=== PATIENT | female | born 1960 | race Caucasian/White ===

== ENCOUNTER 2020-09-06 10:15 | Inpatient (IN) | payer SELFPAY ==
[~2020-09-06] VITALS: Ht 160 cm; Wt 61.2 kg
[2020-09-06] MEDS ORDERED: HYDR12.55 PO (10:24)
[2020-09-06] MEDS ORDERED: ATEN50TA2 PO (10:24)
[2020-09-06 11:43] LABS: BASO % 0.1 % (0.0-1.0); HEMATOCRIT 33.7 % (36.0-47.0); LYMPH # 3.2 10^3/uL (1.5-5.0); LYMPH % 18.8 % (24.0-44.0); MEAN CORPUSCULAR HEMOGLOBIN 26.8 pg (27.0-33.0); MEAN CORPUSCULAR HGB CONC 32.6 g/dl (32.0-36.5); MEAN CORPUSCULAR VOLUME 82.2 fl (80.0-96.0); MONO # 1.6 10^3/uL (0.0-0.8); MONO % 9.4 % (2.0-8.0); NEUTROPHILS # 12.2 10^3/uL (1.5-8.5); NEUTROPHILS % 71.2 % (36.0-66.0); PLATELET COUNT, AUTOMATED 492 10^3/uL (150-450)
[2020-09-06 12:00] LABS: WHITE BLOOD COUNT 17.1 10^3/uL (4.0-10.0)
[2020-09-06 12:07] LABS: ALT/SGPT 14 U/L (12-78); BILIRUBIN,DIRECT 0.1 MG/DL (0.0-0.2); BILIRUBIN,TOTAL 0.3 MG/DL (0.2-1.0); BLOOD UREA NITROGEN 9 MG/DL (7-18); CALCIUM LEVEL 9.4 MG/DL (8.8-10.2); CARBON DIOXIDE LEVEL 27 MEQ/L (21-32); CHLORIDE LEVEL 100 MEQ/L (98-107); CREATININE FOR GFR 0.93 MG/DL (0.55-1.30); GLOMERULAR FILTRATION RATE > 60.0 (>45); GLUCOSE, FASTING 93 MG/DL (70-100); LIPASE 79 U/L (73-393); POTASSIUM SERUM 4.2 MEQ/L (3.5-5.1); SODIUM LEVEL 134 MEQ/L (136-145); TOTAL PROTEIN 7.3 GM/DL (6.4-8.2)
--- NOTE | 2020-09-06 13:02 | REP ---
INDICATION: biliary colic. COMPARISON: None. TECHNIQUE: Right upper quadrant sonography. FINDINGS: Scanning through the right upper quadrant of the abdomen demonstrates numerous stones producing acoustic shadowing in the dependent portion the gallbladder. Common bile duct is normal measuring 0.4 cm in greatest diameter. The gallbladder wall is not visibly thickened. No pericholecystic fluid is seen. Liver is homogeneous and normal in size. No pancreatic abnormality is observed. There is no evidence of ascites. Right kidney shows a extrarenal pelvis configuration. No hydronephrosis. Right renal dimensions are 11.1 x 5.1 x 4.7 cm.. IMPRESSION: Cholelithiasis without evidence of biliary ductal dilation. No gallbladder wall thickening or pericholecystic fluid.. <Electronically signed by Michel Pierre > 09/06/20 [id number]
[2020-09-06] MEDS ORDERED: ISOVUE-370 76% 100ML VIAL As Ordered ONE (13:36)
[2020-09-06] MEDS: GASTROGRAFIN SOLUTION 30ML PO SCH ×2 (15:00→15:30)
--- NOTE | 2020-09-06 16:59 | REP ---
INDICATION: LLQ pain, leukocytosis. COMPARISON: None. TECHNIQUE: 100 mL of intravenous Isovue 370 is administered and helical scanning is acquired. 3 mm axial images are generated. Coronal and sagittal MPR images are provided. FINDINGS: Preliminary digital fulfillment associate radiograph shows an unremarkable bowel gas pattern. The lung bases are essentially clear on axial CT images. There are several scattered subcentimeter low-density areas in the liver consistent with small cysts. There is a regional area of increased density on postcontrast images. This may be fat sparing or a small hemangioma. Fat sparing is favored since no abnormality was noted on right upper quadrant sonography. Normal adrenal glands are seen. No abnormality is noted in the pancreas. There is heterogeneous density in the gallbladder lumen consistent with cholelithiasis. No pericholecystic fluid is seen. The spleen is unremarkable. There is no evidence of upper abdominal ascites. There is moderate mural thickening in the distal ileum over a long segment consistent with inflammatory bowel disease, Crohn's. There is a right lower quadrant abscess anterior to the psoas muscle and just posterior to the distal ileum. This abscess contains air and some fluid. Its dimensions are 3.9 by 4.8 by 6.0 cm. There is surrounding edema and inflammation. There are reactive regional mildly enlarged lymph nodes. 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 A smaller abscess cavity is seen in this location, 2.2 x 2.5 cm. Urinary bladder is intact. No uterine or ovarian abnormality is seen. There is no evidence of free intraperitoneal air. I note that the appendix is surgically absent by history. It is not separately identified. IMPRESSION: Findings most consistent with inflammatory bowel disease, Crohn's enteropathy with extensive small bowel involvement, reactive adenopathy, fistula formation, and 2 lower abdominal abscesses. The largest of these measures 6 cm in greatest diameter. There are several loops of inflamed distal ileum. <Electronically signed by Michel Pierre > 09/06/20 [id number]
[2020-09-06] MEDS ORDERED: NS 1,000 ML IV SCH (17:20)
[2020-09-06] MEDS ORDERED: CIPROFLOXACIN 400 MG in IV 1 EA IV ONE (17:25)
[2020-09-06] MEDS ORDERED: metroNIDAZOLE 500 MG in IV 1 EA IV ONE (17:25)
[2020-09-06] MEDS ORDERED: HYDR12CA PO (17:43)
--- NOTE | 2020-09-06 18:50 | REP ---
INDICATION: admission. COMPARISON: None. TECHNIQUE: Portable upright AP radiograph. FINDINGS: There is left mediastinal lymphadenopathy. Heart is not enlarged. Lung tamez are clear. Pleural angles are sharp. No bony destructive lesion is seen. IMPRESSION: Mediastinal lymphadenopathy suggestive of malignancy. In combination with the intra-abdominal findings, lymphoma and metastatic carcinoma or carcinoid of the small intestine are in the differential as well. <Electronically signed by Michel Pierre > 09/06/20 2158
[2020-09-06 19:00] LABS: RSV AMPLIFICATION NEGATIVE (NEGATIVE)
[2020-09-06] MEDS ORDERED: ACETAMINOPHEN TAB 650MG DOSE (2X325MG) PO PRN (19:00)
--- NOTE | 2020-09-06 19:59 | HPEPDOC ---
General Date of Admission Sep 06, 2020 Date of Service: Sep 06, 2020 Chief Complaint The patient is a 60-year-old female admitted with a reason for visit of abdominal pain and poor oral intake Source: Patient History of Present Illness Mrs. Hyman is a 60 year old female with hypertension who presents with worsening abdominal pain, diarrhea, and poor oral intake. Her symptoms initially started around last July. She had abdominal pain, diarrhea, and poor oral intake in termittently. Since then she's lost 40 pounds. Initially, her providers thought this was pain from the gallbladder. She does have cholelithiasis. She's been in and out of [facility] for suspected biliary colic. Last Monday, she had another episode of abdominal pain. Pain is located in the right upper and right lower abdomen. Severe pain lasted for about 6-7 hours and then becomes an intermittent abdominal discomfort. BMs does not affect pain. Pain was better with Advil. Otherwise, she had nausea and vomiting when the pain first started. No hematemesis. She also has had loose bowel movements since then. About 2-4 a day. 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 Her appetite has been poor sensation. She has also had chills and night sweats. At home she has low-grade temperatures over 100.1. She came into the ED for further evaluation. Workup was significant for a leukocytosis of 17.1. CT of abdomen and pelvis demonstrated inflammatory bowel disease (consistent with Crohn's disease) with reactive adenopathy, fistula formation, and 2 abscesses. When abscess measures 3.9 x 4.8 x 6 cm. The other abscess measures 2.2 x 2.5 cm. I discussed the case with both GI, Dr. Machado and general surgery, Dr. Sarabia. GI recommends IR drainage of abscess and IV antibiotics. We can also start Solu- Medrol for the Crohn's disease. General surgery recommends first treating the abscess, then have GI evaluate to determine if the fistula would require surgery. 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 Hypertension 2. Cholelithiasis Surgical History 1. Appendectomy Family History Father: History of colon cancer and high blood pressure Mother: History of congestive heart failure Social History * Smoker: Denies Alcohol: Denies Drugs: denies A-FIB/CHADSVASC A-FIB History Current/History of A-Fib/PAF?: No Review of Systems Constitutional: Reports: Chills, Fever (low-grade temp, highest 100.1) Eyes: Denies: Pain, Vision change ENT: Denies: Sore Throat Skin: Denies: Rash Pulmonary: Denies: Dyspnea, Cough Cardiovascular: Denies: Chest Pain, Lt Headedness Gastrointestinal: Reports: Abdominal Pain (right upper and right lower quadrant), Diarrhea (loose, not watery) Genitourinary: Denies: Dysuria Hematologic: Denies: Bruising Neurological: Denies: Numbness Psych: Denies: Anxiety, Depression Physical Examination General Exam: Positive: Alert, Cooperative Eye Exam: Positive: EOMI; Negative: Sclera icteric ENT Exam: Positive: Atraumatic Neck Exam: Positive: Supple Chest Exam: Positive: Clear to auscultation Heart Exam: Positive: Rate Normal, Regular Rhythm Abdomen Exam: Positive: Normal bowel sounds, Soft, Tenderness (right upper and right lower quadrant) Extremity Exam: Negative: Edema Neuro Exam: Positive: Normal Speech, Strength at 5/5 X4 ext, Cranial Nerves 3- 12 NL Psych Exam: Positive: Mental status NL, Mood NL Vital Signs Vital Signs Date Time Temp Pulse Resp B/P (MAP) Pulse Ox O2 Delivery O2 Flow Rate FiO2 09/06/20 18:32 98.1 76 18 129/82 (98) 98 Room Air Laboratory Data Labs 24H Laboratory Tests 2 09/06/20 11:34: Immature Granulocyte % (Auto) 0.5, Neutrophils (%) (Auto) 71.2H, Lymphocytes (%) (Auto) 18.8L, Monocytes (%) (Auto) 9.4H, Eosinophils (%) (Auto) 0.0, Basophils (%) (Auto) 0.1, Neutrophils # (Auto) 12.2H, Lymphocytes # (Auto) 3.2, Monocytes # (Auto) 1.6H, Eosinophils # (Auto) 0.0, Basophils # (Auto) 0.0, Nucleated Red Blood Cells % (auto) 0.0, Anion Gap 7L, Glomerular Filtration Rate > 60.0, Calcium Level 9.4, Total Bilirubin 0.3, Direct Bilirubin 0.1, Aspartate Amino Transf (AST/SGOT) 15, Alanine Aminotransferase (ALT/SGPT) 14, Alkaline Phosphatase 120H, Total Protein 7.3, Albumin 3.0L, Albumin/Globulin Ratio 0.7L, Lipase 79 09/06/20 17:55: Coronavirus (COVID-19)(PCR) NEGATIVE, Influenza Type A (RT-PCR) NEGATIVE, Influenza Type B (RT-PCR) NEGATIVE, Respiratory Syncytial Virus (PCR) NEGATIVE 09/06/20 18:08: POC Lactate (Misc Panel) 0.44 CBC/BMP Laboratory Tests 09/06/20 11:34 Assessment/Plan Mrs. Hyman is a 60 year old female with hypertension who presents with worsening abdominal pain, diarrhea, and poor oral intake and found to have Crohn's flare complicated with 2 abscesses and enteroenteric fistula. We will request IR to drain both of these abscesses and attempt to culture. We'll empirically start patient on ciprofloxacin and metronidazole. After IR drainage, we'll start patient on Solu-Medrol for the Crohn's flare. Patient will need a follow-up with GI to discuss a biologic once infection resolves. Would also need to discuss [facility] GI about enteroenteric fistula and if Gen. surgery would need to be involved. Otherwise, after admission, chest x-ray was obtained. Chest x-ray demonstrates mediastinal lymphadenopathy. This may mean malignancy but would need biopsy to confirm. Plan / VTE VTE Prophylaxis Ordered?: Yes Plan Plan 1. Crohn's flare complicated by 2 abscesses and enteroenteric fistula Demonstrated on CT of abdomen and pelvis with contrast We'll request IR to drain abscess and send aspirate for aerobic and anaerobic culture Empirically on ciprofloxacin and metronidazole We'll start Solu-Medrol 40 mg IV once daily after drainage Patient will need a follow-up with GI to discuss management of Crohn's and possibly starting a biologic after infection resolves. Patient will need a follow-up with GI to discuss if enteroenteric fistula would need surgery Patient will be made NPO and given IV fluids for possible CT-guided abscess drainage tomorrow Clear liquid diet until abdominal pain improves 2. Hypertension Patient does not meet SIRS criteria Blood pressure is currently acceptable We'll hold atenolol and hydrochlorothiazide until after drainage 3. Mediastinal lymphadenopathy Possible malignancy Would need biopsy as well Results returned later in the evening. Will discuss results with patient tomorrow morning 4. DVT prophylaxis In anticipation for CT-guided abscess drainage, no chemical prophylaxis SCDs and teds Disposition: Pending clinical improvement and results from abscess drainage DIANELYS IVY DO Sep 06, 2020 19:59
[2020-09-06 20:50] VITALS: BP 135/75
[2020-09-06] MEDS: NS 1,000 ML IV SCH (21:04)
[2020-09-07] MEDS: metroNIDAZOLE 500 MG in IV 1 EA IV SCH ×3 (02:13→17:28)
[2020-09-07 05:14] VITALS: BP 121/70
[2020-09-07] MEDS: CIPROFLOXACIN 400 MG in IV 1 EA IV SCH ×2 (05:40→18:29)
[2020-09-07 06:56] LABS: HEMATOCRIT 31.7 % (36.0-47.0); HEMOGLOBIN 10.1 g/dl (12.0-15.5); MEAN CORPUSCULAR HEMOGLOBIN 26.4 pg (27.0-33.0); MEAN CORPUSCULAR HGB CONC 31.9 g/dl (32.0-36.5); MEAN CORPUSCULAR VOLUME 82.8 fl (80.0-96.0); PLATELET COUNT, AUTOMATED 422 10^3/uL (150-450); RED BLOOD COUNT 3.83 10^6/uL (4.00-5.40); WHITE BLOOD COUNT 13.7 10^3/uL (4.0-10.0)
[2020-09-07 07:07] LABS: INR 1.13; PROTHROMBIN TIME 14.8 SECONDS (12.5-14.3)
[2020-09-07 07:08] LABS: PARTIAL THROMBOPLASTIN TIME 37.3 SECONDS (24.2-38.5)
[2020-09-07 07:17] LABS: BLOOD UREA NITROGEN 6 MG/DL (7-18); CALCIUM LEVEL 8.5 MG/DL (8.8-10.2); CARBON DIOXIDE LEVEL 29 MEQ/L (21-32); CHLORIDE LEVEL 101 MEQ/L (98-107); CREATININE FOR GFR 0.71 MG/DL (0.55-1.30); GLOMERULAR FILTRATION RATE > 60.0 (>45); GLUCOSE, FASTING 135 MG/DL (70-100); POTASSIUM SERUM 3.6 MEQ/L (3.5-5.1); SODIUM LEVEL 136 MEQ/L (136-145)
[2020-09-07] MEDS: NS 1,000 ML IV SCH (11:40)
--- NOTE | 2020-09-07 12:47 | IPNPDOC ---
Subjective Date Seen The patient was seen on 09/07/20. Subjective Chief Complaint/HPI Mrs. Hyman is a 60 year old female with hypertension who presents with worsening abdominal pain, diarrhea, and poor oral intake. This morning, she is still having diarrhea and abdominal pain. Denies chest pain or dyspnea. Pending CT guiding abscess drainage. Objective Physical Examination General Exam: Positive: Alert, Cooperative Eye Exam: Positive: EOMI; Negative: Sclera icteric ENT Exam: Positive: Atraumatic Neck Exam: Positive: Supple Chest Exam: Positive: Clear to auscultation Heart Exam: Positive: Rate Normal, Regular Rhythm Abdomen Exam: Positive: Normal bowel sounds, Soft, Tenderness (right upper and right lower quadrant) Extremity Exam: Negative: Edema Neuro Exam: Positive: Normal Speech, Strength at 5/5 X4 ext, Cranial Nerves 3- 12 NL Psych Exam: Positive: Mental status NL, Mood NL Assessment /Plan Assessment Mrs. Hyman is a 60 year old female with hypertension who presents with worsening abdominal pain, diarrhea, and poor oral intake and found to have Crohn's flare complicated with 2 abscesses and enteroenteric fistula. We will request IR to drain both of these abscesses and attempt to culture. We'll empirically start patient on ciprofloxacin and metronidazole. After IR drainage, we'll start patient on Solu-Medrol for the Crohn's flare. Patient will need a follow-up with GI to discuss a biologic once infection resolves. Would also need to discuss with GI about enteroenteric fistula and if Gen. surgery would need to be involved. Otherwise, after admission, chest x-ray was obtained. Chest x-ray demonstrates mediastinal lymphadenopathy. This may mean malignancy but would need biopsy to confirm. Discussed CXR findings with patient. Will order CT chest with contrast to evaluate location of mediastinal lymphadenopathy. Since patient had contrast study (CT abd/pelvis with IV contrast) yesterday, this study will have to be scheduled for tomorrow. Plan/VTE VTE Prophylaxis Ordered?: Yes Plan 1. Crohn's flare complicated by 2 abscesses and enteroenteric fistula Demonstrated on CT of abdomen and pelvis with contrast We'll request IR to drain abscess and send aspirate for aerobic and anaerobic culture Empirically on ciprofloxacin and metronidazole We'll start Solu-Medrol 40 mg IV once daily after drainage Patient will need a follow-up with GI to discuss management of Crohn's and possibly starting a biologic after infection resolves. Patient will need a follow-up with GI to discuss if enteroenteric fistula would need surgery Patient will be made NPO and given IV fluids for CT-guided abscess drainage today. Pending drainage Clear liquid diet until abdominal pain improves 2. Hypertension Patient does not meet SIRS criteria Blood pressure is currently acceptable We'll hold atenolol and hydrochlorothiazide until after drainage 3. Mediastinal lymphadenopathy Possible malignancy Will order CT chest with IV contrast to evaluate mediastinal lymphadenopathy. Will have to be done tomorrow as patient had contrast study within [address] chest with IV contrast is obtained, will need to touch base with pulmonology to discuss biopsy during his admission or outpatient 4. DVT prophylaxis In anticipation for CT-guided abscess drainage, no chemical prophylaxis SCDs and teds Disposition: Pending abscess drainage today and CT chest with IV contrast tomorrow. Pending clinical improvement VS, I&O, 24H, Fishbone Vital Signs/I&O Vital Signs Date Time Temp Pulse Resp B/P (MAP) Pulse Ox O2 Delivery O2 Flow Rate FiO2 09/07/20 05:14 98.3 81 18 121/70 (87) 97 Room Air I&O- Last 24 Hours up to 6 AM 09/07/20 05:59 Intake Total 750 ml Balance 750 ml Laboratory Data 24H LABS Laboratory Tests 2 09/06/20 17:55: Coronavirus (COVID-19)(PCR) NEGATIVE, Influenza Type A (RT-PCR) NEGATIVE, Influ kristyn Type B (RT-PCR) NEGATIVE, Respiratory Syncytial Virus (PCR) NEGATIVE 09/06/20 18:08: POC Lactate (Misc Panel) 0.44 09/07/20 06:41: Nucleated Red Blood Cells % (auto) 0.0, Prothrombin Time 14.8H, Prothromb Time International Ratio 1.13, Activated Partial Thromboplast Time 37.3, Anion Gap 6L, Glomerular Filtration Rate > 60.0, Calcium Level 8.5L CBC/BMP Laboratory Tests 09/07/20 06:41 DIANELYS IVY DO Sep 07, 2020 12:47
[2020-09-07] MEDS ORDERED: SODIUM BICARBONATE 8.4% INJ 50MEQ 50 ML VIAL As Ordered ONE (15:44)
[2020-09-07] MEDS ORDERED: LIDOCAINE 1% MDV 20ML VIAL As Ordered ONE (15:44)
[2020-09-07] MEDS ORDERED: SODIUM CHLORIDE 0.9% INJ 10 ML SYR IV SCH (18:00)
--- NOTE | 2020-09-07 18:14 | REP ---
INDICATION: two abdominal abscess seen on CT abd/pelvis. COMPARISON: None. TECHNIQUE: The procedure is performed by EULOGIO Vang, under the direct supervision of Dr. Pierre. The risks and benefits of the procedure were explained to the patient and informed consent was obtained both orally and written. Directly prior to the start of the procedure, a formal timeout was done in the exam room. The anterior pelvic abscess was localized using CT guidance. Skin was prepped and draped in the usual sterile fashion. Twelve ml of buffered lidocaine was used as a local anesthetic. FINDINGS: Using CT guidance a 10 [place] multi side hole pigtail catheter was inserted and advanced into the abscess. Approximately 40 mL of pus was aspirated and sent to the lab for further analysis. The 10 [place] pigtail catheter was sutured in place, a sterile dressing was applied, and a drainage bag was attached. CT images obtained directly after the placement show the pigtail catheter to be in good position. IMPRESSION: Ten [place] pigtail catheter placement into pelvic abscess. <Electronically signed by Tarsha Trevino > 09/07/20 1738 <Electronically signed by Michel Pierre > 09/07/20 1814
--- NOTE | 2020-09-07 19:52 | ECGEPIP ---
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
[2020-09-07] MEDS: ONDANSETRON 4MG/2ML VIAL IV PRN (20:06)
[2020-09-07 22:00] VITALS: BP 144/84
[2020-09-08] MEDS ORDERED: ACETAMINOPHEN TAB 650MG DOSE (2X325MG) PO PRN (00:50)
[2020-09-08] MEDS: metroNIDAZOLE 500 MG in IV 1 EA IV SCH ×3 (01:05→18:47)
[2020-09-08 06:00] VITALS: BP 114/58
[2020-09-08] MEDS: NS 1,000 ML IV SCH ×2 (06:06→21:22)
[2020-09-08] MEDS: CIPROFLOXACIN 400 MG in IV 1 EA IV SCH ×2 (06:06→17:14)
[2020-09-08] MEDS: ONDANSETRON 4MG/2ML VIAL IV PRN (06:55)
[2020-09-08 07:21] LABS: HEMATOCRIT 32.4 % (36.0-47.0); HEMOGLOBIN 10.6 g/dl (12.0-15.5); MEAN CORPUSCULAR HGB CONC 32.7 g/dl (32.0-36.5); MEAN CORPUSCULAR VOLUME 82.4 fl (80.0-96.0); PLATELET COUNT, AUTOMATED 431 10^3/uL (150-450); RED BLOOD COUNT 3.93 10^6/uL (4.00-5.40); WHITE BLOOD COUNT 20.8 10^3/uL (4.0-10.0)
[2020-09-08 07:43] LABS: BLOOD UREA NITROGEN 5 MG/DL (7-18); CALCIUM LEVEL 8.8 MG/DL (8.8-10.2); CARBON DIOXIDE LEVEL 25 MEQ/L (21-32); CHLORIDE LEVEL 96 MEQ/L (98-107); CREATININE FOR GFR 0.74 MG/DL (0.55-1.30); GLOMERULAR FILTRATION RATE > 60.0 (>45); GLUCOSE, FASTING 120 MG/DL (70-100); POTASSIUM SERUM 3.5 MEQ/L (3.5-5.1); SODIUM LEVEL 132 MEQ/L (136-145)
[2020-09-08] MEDS ORDERED: ISOVUE-370 76% 100ML VIAL As Ordered ONE (08:16)
[2020-09-08] MEDS ORDERED: methylPREDNISolone 40MG 1ML VIAL IV SCH (09:00)
--- NOTE | 2020-09-08 09:20 | REP ---
INDICATION: Mediastinal lymphadenopathy suggestive of malignancy. COMPARISON: Portable chest 09/06/2020 TECHNIQUE: Isovue 370 mg/mL 75 mL routine axial scans and both coronal and sagittal reconstructions. Coronal MIP reformats also reviewed. FINDINGS: There is an 8.9 8 by 4.6 cm lobulated solid mass in the superior anterior mediastinum it extends from the superior aspect of the left hilum abutting the aortic arch main pulmonary artery segment and extending to the anterior chest wall. There are few tiny nodes adjacent to it 5 mm or smaller. The mass has some coarse calcifications located anteriorly in only one area and some slight heterogeneity of densities. There is also a lobulated 2.9 x 1.8 x 1.7 cm superior mediastinal mass abutting the brachiocephalic vein and SVC inferiorly and medially respectively. There were no pathologic sized hilar nodes. There are other subcentimeter nodes in the AP window, subcarinal and right paratracheal region. I do not see pathologic sized axillary or supraclavicular nodes. Thyroid lobes symmetric. Tracheal airway intact. Heart is not enlarged. There is no pericardial thickening or effusion. The lung tamez are well inflated. There is no definite acute infiltrate or parenchymal mass. No pleural thickening or calcified pleural plaques. No definite effusion see no visible nodules. The bone windows show the sternum, manubrium, medial clavicles, left AC joint, scapula, humeral heads and visualized portions of glenohumeral joints intact. Some minor degenerative changes in the spine without compression deformity or destructive lesions. Visualized ribs intact. In the visible upper abdomen there are a few tiny hypodensities consistent with small hepatic cysts. That portion of liver, gallbladder, pancreas, spleen and upper poles of kidneys unchanged without hydronephrosis, mass or other acute finding. Adrenal glands symmetric and normal. Stomach with small hiatal hernia. IMPRESSION: 1. An 8.9 x 8 x 4.6 cm mediastinal mass in the anterior and superior mediastinum extending from the left hilum superiorly to abut the anterior chest wall, aortic arch and main pulmonary artery segment. It is lobulated, slightly heterogeneous density and has 1 area of coarse calcification within it. No adjacent lung findings. A 2nd anterior superior mediastinal mass 2.9 x 1.8 x 1.7 cm abuts the inferior aspect of the brachiocephalic vein in the medial aspect of the SVC. No other mediastinal masses or adenopathy of pathologic size. Differential diagnostic considerations for mediastinal masses extensive above lymphoma is certainly a strong consideration. Lung tamez clear. Bones intact. 2. Small hiatal hernia. A few tiny a Paddock cysts. No other significant finding. <Electronically signed by Seth Bush > 09/08/20 0993
[2020-09-08 14:00] VITALS: BP 107/61
--- NOTE | 2020-09-08 16:38 | IPNPDOC ---
Text Note Date of Service The patient was seen on 09/08/20. NOTE Subjective: No any acute events overnight, intestinal abscesses were drained yesterday. Objective: GENERAL APPEARANCE: NAD HEENT: no scleral icterus, no JVD, EOMI CARDIOVASCULAR: S1S2 LUNGS: Diminished lung sounds bilaterally ABDOMEN: soft & moderately tender on palpation around right lower quadrant, serosanguineous discharge on the drainage bag MUSCULOSKELETAL: no cyanosis, no swelling INTEGUMENT: no generalized pallor NEUROLOGICAL: cranial nerve function from 2-12 intact intact, follows commands, speech not dysarthric Assessment /Plan Patient is is a 60 year old female with hypertension who presents with worsening abdominal pain, diarrhea, and poor oral intake and found to have Crohn's flare complicated with 2 abscesses and enteroenteric fistula. Crohn exacerbation/intestinal abscesses/enteroenteric fistula Continue steroids. I talked to Dr. Machado, he recommended to change IV steroids to by mouth prednisone 40 mg Abdominal Pain significantly subsided GI team will proceed with colonoscopy in 2 days Continue clear liquid diet Drain culture positive for Streptococcus group C Continue ciprofloxacin IV and Flagyl IV Drain was done on 09/07/20 No surgical intervention for enteroenteric fistula for now Hypertension Continue home cardioprotective medications Blood pressure under control Mediastinal lymphadenopathy CT chest showed An 8.9 x 8 x 4.6 cm mediastinal mass in the anterior and superior mediastinum extending from the left hilum superiorly to abut the anterior chest wall, aortic arch and main pulmonary artery segment. It is lobulated, slightly heterogeneous density and has 1 area of coarse calcification within it. No adjacent lung findings. A 2nd anterior superior mediastinal mass 2.9 x 1.8 x 1.7 cm abuts the inferior aspect of the brachiocephalic vein in the medial aspect of the SVC. Differential diagnosis includes lymphoma versus lung malignancy IR biopsy ordered DVT prophylaxis Heparin 5000 twice a day VS,Fishbone, I+O VS, Fishbone, I+O Laboratory Tests 09/08/20 06:56 Vital Signs Date Time Temp Pulse Resp B/P (MAP) Pulse Ox O2 Delivery O2 Flow Rate FiO2 09/08/20 14:00 98.3 87 16 107/61 (76) 98 09/08/20 06:00 Room Air I&O- Last 24 Hours up to 6 AM 09/08/20 06:00 Intake Total 700 ml Output Total 0 ml Balance 700 ml WANDA MARTINEZ DO Sep 08, 2020 16:38
[2020-09-08 22:00] VITALS: BP 139/73
[2020-09-09] MEDS: metroNIDAZOLE 500 MG in IV 1 EA IV SCH ×3 (02:52→18:13)
[2020-09-09] MEDS: CIPROFLOXACIN 400 MG in IV 1 EA IV SCH ×2 (05:19→18:13)
[2020-09-09 06:00] VITALS: BP 129/69
[2020-09-09] MEDS ORDERED: MOM 30ML SUSPENSION UDC PO ONE (08:00)
[2020-09-09] MEDS ORDERED: atenoloL 50 MG TAB PO SCH (09:00)
[2020-09-09] MEDS: predniSONE 20 MG TAB PO SCH (09:22)
[2020-09-09] MEDS: atenoloL 50 MG TAB PO SCH (09:33)
[2020-09-09 09:34] LABS: HEMATOCRIT 32.7 % (36.0-47.0); HEMOGLOBIN 10.3 g/dl (12.0-15.5); MEAN CORPUSCULAR HEMOGLOBIN 26.6 pg (27.0-33.0); MEAN CORPUSCULAR HGB CONC 31.5 g/dl (32.0-36.5); MEAN CORPUSCULAR VOLUME 84.5 fl (80.0-96.0); PLATELET COUNT, AUTOMATED 409 10^3/uL (150-450); RED BLOOD COUNT 3.87 10^6/uL (4.00-5.40); WHITE BLOOD COUNT 12.7 10^3/uL (4.0-10.0)
[2020-09-09 10:09] LABS: BLOOD UREA NITROGEN 6 MG/DL (7-18); CALCIUM LEVEL 8.5 MG/DL (8.8-10.2); CARBON DIOXIDE LEVEL 26 MEQ/L (21-32); CHLORIDE LEVEL 105 MEQ/L (98-107); GLOMERULAR FILTRATION RATE > 60.0 (>45); GLUCOSE, FASTING 167 MG/DL (70-100); POTASSIUM SERUM 3.1 MEQ/L (3.5-5.1); SODIUM LEVEL 139 MEQ/L (136-145)
[2020-09-09 14:00] VITALS: BP 115/73
[2020-09-09] MEDS ORDERED: LIDOCAINE 1% MDV 20ML VIAL As Ordered ONE (14:54)
[2020-09-09] MEDS: NS 1,000 ML IV SCH (14:59)
[2020-09-09] MEDS ORDERED: SODIUM BICARBONATE 8.4% INJ 50MEQ 50 ML VIAL As Ordered ONE (15:01)
[2020-09-09] MEDS ORDERED: POTASSIUM CHLORIDE 10 MEQ SR TABLET PO ONE (15:30)
--- NOTE | 2020-09-09 15:33 | IPNPDOC ---
Text Note Date of Service The patient was seen on 09/09/20. NOTE Subjective: No any acute events overnight. Patient denied fever, chills, nausea, chest pain or palpitations Objective: GENERAL APPEARANCE: NAD HEENT: no scleral icterus, no JVD, EOMI CARDIOVASCULAR: S1S2 LUNGS: Diminished lung sounds bilaterally ABDOMEN: soft & mildly tender on palpation around right lower quadrant, serous discharge in the drainage bag MUSCULOSKELETAL: no cyanosis, no swelling INTEGUMENT: no generalized pallor NEUROLOGICAL: cranial nerve function from 2-12 intact intact, follows commands, speech not dysarthric Assessment /Plan Patient is is a 60 year old female with hypertension who presents with worsening abdominal pain, diarrhea, and poor oral intake and found to have Crohn's flare complicated with 2 abscesses and enteroenteric fistula. Crohn exacerbation/intestinal abscesses/enteroenteric fistula Continue steroids. I talked to Dr. Machado, he recommended to change IV steroids to by mouth prednisone 40 mg Abdominal Pain significantly subsided GI team will proceed with colonoscopy tomorrow Drain culture positive for Streptococcus group C Continue ciprofloxacin IV and Flagyl IV No surgical intervention for enteroenteric fistula for now Drain was done on 09/07/20 Hypertension Continue home cardioprotective medications Blood pressure under control Mediastinal lymphadenopathy CT chest showed An 8.9 x 8 x 4.6 cm mediastinal mass in the anterior and superior mediastinum extending from the left hilum superiorly to abut the anterior chest wall, aortic arch and main pulmonary artery segment. It is lobulated, slightly heterogeneous density and has 1 area of coarse calcification within it. No adjacent lung findings. A 2nd anterior superior mediastinal mass 2.9 x 1.8 x 1.7 cm abuts the inferior aspect of the brachiocephalic vein in the medial aspect of the SVC. Differential diagnosis includes lymphoma versus lung malignancy IR biopsy ordered, will be done today DVT prophylaxis Heparin 5000 twice a day VS,Fishbone, I+O VS, Fishbone, I+O Laboratory Tests 09/09/20 09:19 09/09/20 09:20 Vital Signs Date Time Temp Pulse Resp B/P (MAP) Pulse Ox O2 Delivery O2 Flow Rate FiO2 09/09/20 15:19 65 18 96 Room Air 09/09/20 15:09 97.8 09/09/20 14:00 115/73 (87) I&O- Last 24 Hours up to 6 AM 09/09/20 06:00 Intake Total 3740 ml Output Total 110 ml Balance 3630 ml WANDA MARTINEZ DO Sep 09, 2020 15:33
[2020-09-09] MEDS ORDERED: POLYETHYLENE GLYCOL (MIRALAX) 238GM BOTTLE PO ONE (17:00)
--- NOTE | 2020-09-09 17:41 | REP ---
INDICATION: mediastinal mass. COMPARISON: None. TECHNIQUE: The procedure is performed by Tarsha Trevino [facility], under the direct supervision of Dr. Beyer. The risks and benefits of the procedure were explained to the patient and informed consent was obtained both orally and written. Directly prior to the start of the procedure, a formal timeout was done in the exam room. The left-sided mediastinal mass was localized using CT guidance. Skin was prepped and draped in the usual sterile fashion. Five ml of buffered lidocaine was used as a local anesthetic. FINDINGS: Using CT guidance a 19/20 gauge coaxial needle biopsy system was inserted and advanced into the nodule. Six core biopsy specimens were obtained. Three specimens were sent to our lab here, and remaining 3 were sent out in RPMI solution, for further testing. CT images obtained directly after the biopsy show no evidence of pneumothorax. After the appropriate amount of monitored convalescence the patient was discharged from the department. IMPRESSION: CT-guided mediastinal biopsy. <Electronically signed by Tarsha Trevino > 09/09/20 1606 <Electronically signed by Av Beyer > 09/09/20 [id number]
[2020-09-09 22:00] VITALS: BP 156/88
[2020-09-09] MEDS: HEPARIN SOD (PORCINE) 5000UNITS/ML 1ML VIAL/SYRINGE SQ SCH (22:29)
[2020-09-10] MEDS: metroNIDAZOLE 500 MG in IV 1 EA IV SCH ×3 (02:35→18:44)
[2020-09-10] MEDS ORDERED: POLYETHYLENE GLYCOL (MIRALAX) 238GM BOTTLE PO ONE (05:00)
[2020-09-10] MEDS: CIPROFLOXACIN 400 MG in IV 1 EA IV SCH ×2 (06:04→18:44)
[2020-09-10] MEDS: NS 1,000 ML IV SCH ×2 (06:08→18:44)
[2020-09-10 06:46] LABS: HEMATOCRIT 33.9 % (36.0-47.0); HEMOGLOBIN 10.4 g/dl (12.0-15.5); MEAN CORPUSCULAR HEMOGLOBIN 26.1 pg (27.0-33.0); MEAN CORPUSCULAR HGB CONC 30.7 g/dl (32.0-36.5); PLATELET COUNT, AUTOMATED 459 10^3/uL (150-450); RED BLOOD COUNT 3.99 10^6/uL (4.00-5.40); WHITE BLOOD COUNT 13.3 10^3/uL (4.0-10.0)
[2020-09-10 06:47] VITALS: BP 148/78
[2020-09-10 07:01] LABS: BLOOD UREA NITROGEN 6 MG/DL (7-18); CALCIUM LEVEL 8.6 MG/DL (8.8-10.2); CARBON DIOXIDE LEVEL 28 MEQ/L (21-32); CHLORIDE LEVEL 106 MEQ/L (98-107); CREATININE FOR GFR 0.69 MG/DL (0.55-1.30); GLOMERULAR FILTRATION RATE > 60.0 (>45); GLUCOSE, FASTING 89 MG/DL (70-100); POTASSIUM SERUM 3.3 MEQ/L (3.5-5.1); SODIUM LEVEL 139 MEQ/L (136-145)
[2020-09-10] MEDS: HEPARIN SOD (PORCINE) 5000UNITS/ML 1ML VIAL/SYRINGE SQ SCH ×2 (09:00→22:01)
[2020-09-10] MEDS ORDERED: KCL 10MEQ/100ML SWI (KRUN) 10 MEQ in IV 1 EA IV ONE (09:00)
[2020-09-10] MEDS: POTASSIUM CHLORIDE 10 MEQ SR TABLET PO SCH (09:11)
[2020-09-10] MEDS: atenoloL 50 MG TAB PO SCH (09:12)
[2020-09-10] MEDS: predniSONE 20 MG TAB PO SCH (09:13)
[2020-09-10 10:00] VITALS: BP 142/78
[2020-09-10] MEDS ORDERED: LIDOCAINE 2% 100MG/5ML SDV (FOR ANES.) As Ordered ONE (12:33)
[2020-09-10] MEDS ORDERED: propofoL 200 MG/20 ML VIAL As Ordered ONE (12:33)
[2020-09-10 14:00] VITALS: BP 145/87
--- NOTE | 2020-09-10 15:10 | IPNPDOC ---
Text Note Date of Service The patient was seen on 09/10/20. NOTE Subjective: No any acute events overnight. Patient stated that she feels better today, denied any abdominal pain Objective: GENERAL APPEARANCE: NAD HEENT: no scleral icterus, no JVD, EOMI CARDIOVASCULAR: S1S2 LUNGS: Diminished lung sounds bilaterally ABDOMEN: soft & mildly tender on palpation around right lower quadrant, serous discharge in the drainage bag MUSCULOSKELETAL: no cyanosis, no swelling INTEGUMENT: no generalized pallor NEUROLOGICAL: cranial nerve function from 2-12 intact intact, follows commands, speech not dysarthric Assessment /Plan Patient is is a 60 year old female with hypertension who presents with worsening abdominal pain, diarrhea, and poor oral intake and found to have Crohn's flare complicated with 2 abscesses and enteroenteric fistula. Crohn exacerbation/intestinal abscesses/enteroenteric fistula Continue steroids. I talked to Dr. Machado, he recommended to change IV steroids to by mouth prednisone 40 mg Abdominal Pain significantly subsided GI team will proceed with colonoscopy tomorrow Drain culture positive for Streptococcus group C Continue ciprofloxacin IV and Flagyl IV No surgical intervention for enteroenteric fistula for now Drain was done on 09/07/20 Hypertension Continue home cardioprotective medications Blood pressure under control Mediastinal lymphadenopathy CT chest showed An 8.9 x 8 x 4.6 cm mediastinal mass in the anterior and superior mediastinum extending from the left hilum superiorly to abut the anterior chest wall, aortic arch and main pulmonary artery segment. It is lobulated, slightly heterogeneous density and has 1 area of coarse calcification within it. No adjacent lung findings. A 2nd anterior superior mediastinal mass 2.9 x 1.8 x 1.7 cm abuts the inferior aspect of the brachiocephalic vein in the medial aspect of the SVC. Differential diagnosis includes lymphoma versus lung malignancy IR biopsy was done, await report DVT prophylaxis Heparin 5000 twice a day VS,Fishbone, I+O VS, Fishbone, I+O Laboratory Tests 09/10/20 06:11 Vital Signs Date Time Temp Pulse Resp B/P (MAP) Pulse Ox O2 Delivery O2 Flow Rate FiO2 09/10/20 14:00 98.1 57 16 145/87 (106) 100 Room Air I&O- Last 24 Hours up to 6 AM 09/10/20 06:00 Intake Total 1000 ml Output Total 150 ml Balance 850 ml WANDA MARTINEZ DO Sep 10, 2020 15:09
--- NOTE | 2020-09-10 16:00 | ROOR ---
Patient Name: Savita Hyman Procedure Date: 09/10/2020 3:18 PM Date of : 1960 Age: 60 Room: [facility] Gender: Female Note Status: Finalized Procedure: Upper GI endoscopy Indications: Abdominal pain, Crohn's disease Providers: Sharath MACHADO MD Referring MD: MICHAEL RODRIGUEZ MD, 2. Inpatient 2. Inpatient Requesting Provider: Medicines: Monitored Anesthesia Care Complications: No immediate complications. Procedure: Pre-Anesthesia Assessment: - The heart rate, respiratory rate, oxygen saturations, blood pressure, adequacy of pulmonary ventilation, and response to care were monitored throughout the procedure. The Endoscope was introduced through the mouth, and advanced to the third part of duodenum. The upper GI endoscopy was accomplished without difficulty. The patient tolerated the procedure well. Findings: The examined esophagus was normal. Small Hiatal Hernia. The entire examined stomach was normal. Biopsies were taken with a cold forceps for Helicobacter pylori testing. A mild post-ulcer deformity was found in the first portion of the duodenum. One non-bleeding cratered duodenal ulcer with no stigmata of bleeding was found in the first portion of the duodenum. The lesion was 5 mm in largest dimension. Biopsies were taken with a cold forceps for histology. Impression: - Non-bleeding duodenal ulcer in the first portion of the duodenum, with no stigmata of bleeding. Biopsied. - Mild first portion duodenal deformity, likely related to prior ulcer disease. - Normal esophagus. - Normal stomach. Biopsied. - Small Hiatal Hernia. Recommendation: - Await pathology results. - Use Prilosec (omeprazole) 40 mg PO daily. Procedure Code(s): --- Professional --- 02534, Esophagogastroduodenoscopy, flexible, transoral; with biopsy, single or multiple Diagnosis Code(s): --- Professional --- K50.90, Crohn's disease, unspecified, without complications R10.9, Unspecified abdominal pain K26.9, Duodenal ulcer, unspecified as acute or chronic, without hemorrhage or perforation K31.89, Other diseases of stomach and duodenum CPT copyright 2019 [place] [employer]. All rights reserved. The codes documented in this report are preliminary and upon doctor of nursing practice review may be revised to meet current compliance requirements. Sharath Machado MD Sharath MACHADO MD 09/10/2020 4:00:23 PM Electronically signed by Sharath MACHADO MD Number of Addenda: 0 Note Initiated On: 09/10/2020 3:18 PM Estimated Blood Loss: Estimated blood loss: none.
--- NOTE | 2020-09-10 16:28 | ROOR ---
Patient Name: Savita Hyman Procedure Date: 09/10/2020 3:19 PM Date of : 1960 Age: 60 Room: [facility] Gender: Female Note Status: Finalized Procedure: Colonoscopy Indications: Abnormal CT of the GI tract, Suspected Crohn's disease Providers: Sharath MACHADO MD Referring MD: MICHAEL RODRIGUEZ MD, 2. Inpatient 2. Inpatient Requesting Provider: Medicines: Monitored Anesthesia Care Complications: No immediate complications. Procedure: Pre-Anesthesia Assessment: - The heart rate, respiratory rate, oxygen saturations, blood pressure, adequacy of pulmonary ventilation, and response to care were monitored throughout the procedure. The Colonoscope was introduced through the anus and advanced to 3-5 cm into the ileum at which point I hit a stenotic area. I can see through the opening, but cannot pass the scope. The patient tolerated the procedure well. The quality of the bowel preparation was good. Findings: An anal fissure was found on perianal exam. The terminal ileum contained a moderate stenosis that was non-traversed. Biopsies were taken with a cold forceps for histology. The colon (entire examined portion) appeared normal. Impression: - Ulcerated scarred stricture in the terminal ileum. Biopsied. - Localized anal/distal rectal ulceration,scarring and fissure found. - The colon is otherwise normal. (- Exam is consistent with ileal and anal Crohns disease.) Recommendation: - Await pathology results. - Return to my office in 2 weeks. - (I anticipate we will start her on biologic therapy for crohns disease, preferably TNF beatris, unless contraindicated. This is on hold for now--Awaiting TB testing results and awaiting results/management of 8 cm mediastinal mass biopsy). Will likely need clearance by Heme-Onc to proceed with biologic therapy for crohns disease) Procedure Code(s): --- Professional --- 79387, Colonoscopy, flexible; with biopsy, single or multiple Diagnosis Code(s): --- Professional --- R93.3, Abnormal findings on diagnostic imaging of other parts of digestive tract K56.699, Other intestinal obstruction unspecified as to partial versus complete obstruction K60.2, Anal fissure, unspecified CPT copyright 2019 [employer]. All rights reserved. The codes documented in this report are preliminary and upon financial assistance advisor review may be revised to meet current compliance requirements. Sharath Machado MD Sharath AMCHADO MD 09/10/2020 4:27:58 PM Electronically signed by Sharath MACHADO MD Number of Addenda: 0 Note Initiated On: 09/10/2020 3:19 PM Estimated Blood Loss: Estimated blood loss: none.
[2020-09-10 17:22] VITALS: BP 142/79
[2020-09-10 20:53] VITALS: BP 136/77
[2020-09-11] MEDS: metroNIDAZOLE 500 MG in IV 1 EA IV SCH ×2 (02:38→09:18)
[2020-09-11] MEDS: CIPROFLOXACIN 400 MG in IV 1 EA IV SCH (06:02)
[2020-09-11 06:07] VITALS: BP 124/78
[2020-09-11 06:39] LABS: HEMATOCRIT 31.8 % (36.0-47.0); MEAN CORPUSCULAR HEMOGLOBIN 26.1 pg (27.0-33.0); MEAN CORPUSCULAR HGB CONC 31.4 g/dl (32.0-36.5); PLATELET COUNT, AUTOMATED 436 10^3/uL (150-450); RED BLOOD COUNT 3.83 10^6/uL (4.00-5.40); WHITE BLOOD COUNT 12.8 10^3/uL (4.0-10.0)
[2020-09-11 06:59] LABS: BLOOD UREA NITROGEN 8 MG/DL (7-18); CALCIUM LEVEL 8.2 MG/DL (8.8-10.2); CARBON DIOXIDE LEVEL 27 MEQ/L (21-32); CHLORIDE LEVEL 107 MEQ/L (98-107); CREATININE FOR GFR 0.69 MG/DL (0.55-1.30); GLOMERULAR FILTRATION RATE > 60.0 (>45); GLUCOSE, FASTING 89 MG/DL (70-100); POTASSIUM SERUM 3.6 MEQ/L (3.5-5.1); SODIUM LEVEL 141 MEQ/L (136-145)
[2020-09-11] MEDS ORDERED: LACTOBACILLUS ACIDOPHILUS CAP (BACID) PO SCH (09:00)
[2020-09-11 09:17] VITALS: BP 124/78
[2020-09-11] MEDS: atenoloL 50 MG TAB PO SCH (09:17)
[2020-09-11] MEDS: POTASSIUM CHLORIDE 10 MEQ SR TABLET PO SCH (09:17)
[2020-09-11] MEDS: predniSONE 20 MG TAB PO SCH (09:17)
[2020-09-11] MEDS: HEPARIN SOD (PORCINE) 5000UNITS/ML 1ML VIAL/SYRINGE SQ SCH (09:18)
[2020-09-11] MEDS: NS 1,000 ML IV SCH (09:18)
[2020-09-11] MEDS ORDERED: OMEPRAZOLE 20 MG CAP PO ONE (10:00)
[2020-09-11] MEDS ORDERED: ATEN25TA PO (13:13)
[2020-09-11] MEDS ORDERED: FLAG500T PO (13:13)
[2020-09-11] MEDS ORDERED: PRED10TA2 PO (13:13)
[2020-09-11] MEDS ORDERED: OMEP-218 PO (13:13)
[2020-09-11] MEDS ORDERED: CIPR-249 PO (13:13)
--- NOTE | 2020-09-11 17:12 | DS.PDOC ---
Discharge Summary General Date of Admission Sep 06, 2020 at 18:49 Date of Discharge 09/11/20 Discharge Summary PROCEDURES PERFORMED DURING STAY: EGD and colonoscopy ADMITTING DIAGNOSES: Crohn exacerbation/intestinal abscesses/enteroenteric fistula Hypertension Mediastinal lymphadenopathy DISCHARGE DIAGNOSES: Crohn exacerbation/intestinal abscesses/enteroenteric fistula Hypertension Mediastinal lymphadenopathy COMPLICATIONS/CHIEF COMPLAINT: Crohns Disease,Entero-Enteric Fistula,Intra Abd Ab. HISTORY OF PRESENT ILLNESS:Mrs. Hyman is a 60 year old female with hypertension who presents with worsening abdominal pain, diarrhea, and poor oral intake. Her symptoms initially started around last July. She had abdominal pain, diarrhea, and poor oral intake intermittently. Since then she's lost 40 pounds. Initially, her providers thought this was pain from the gallbladder. She does have cholelithiasis. She's been in and out of [facility] for suspected biliary colic. Last Monday, she had another episode of abdominal pain. Pain is located in the right upper and right lower abdomen. Severe pain lasted for about 6-7 hours and then becomes an intermittent abdominal discomfort. BMs does not affect pain. Pain was better with Advil. Otherwise, she had nausea and vomiting when the pain first started. No hematemesis. She also has had loose bowel movements since then. About 2-4 a day. Denies bright red blood and stool color is director revenue than normal. Her appetite has been poor sensation. She has also had chills and night sweats. At home she has low-grade temperatures over 100.1. She came into the ED for further evaluation. Workup was significant for a leukocytosis of 17.1. CT of abdomen and pelvis demonstrated inflammatory bowel disease (consistent with Crohn's disease) with reactive adenopathy, fistula formation, and 2 abscesses. When abscess measures 3.9 x 4.8 x 6 cm. The other a bscess measures 2.2 x 2.5 cm. I discussed the case with both GI, Dr. Machado and general surgery, Dr. Sarabia. GI recommends IR drainage of abscess and IV antibiotics. We can also start Solu- Medrol for the Crohn's disease. General surgery recommends first treating the abscess, then have GI evaluate to determine if the fistula would require surgery. Patient will be admitted for acute flare of Crohn disease complicated with 2 inch abdominal abscesses and enteroenteric fistula HOSPITAL COURSE: During the hospital stay following issue addressed Crohn exacerbation/intestinal abscesses/enteroenteric fistula Continue steroids. I talked to Dr. Machado, he recommended to change IV steroids to by mouth prednisone 40 mg Abdominal Pain significantly subsided GI team did EGD and colonoscopy. Confirm diagnosis of Crohn Drain culture positive for Streptococcus group C Continue ciprofloxacin IV and Flagyl IV No surgical intervention for enteroenteric fistula for now Drain was done on 09/07/20 Hypertension Continue home cardioprotective medications Blood pressure under control Mediastinal lymphadenopathy CT chest showed An 8.9 x 8 x 4.6 cm mediastinal mass in the anterior and superior mediastinum extending from the left hilum superiorly to abut the anterior chest wall, aortic arch and main pulmonary artery segment. It is lobulated, slightly heterogeneous density and has 1 area of coarse calcification within it. No adjacent lung findings. A 2nd anterior superior mediastinal mass 2.9 x 1.8 x 1.7 cm abuts the inferior aspect of the brachiocephalic vein in the medial aspect of the SVC. Differential diagnosis includes lymphoma versus lung malignancy IR biopsy was done, see report below DVT prophylaxis Heparin 5000 twice a day Mediastinal mass, biopsy and tissue in RPMI for flow cytometry: Suspicious for thymic neoplasia versus hyperplasia, pending consultation with [facility] for immunohistochemical work up to rule out a malignant process and further classify. Immunostains for llamas-keratin and LCA shows two admixed population of cells positive for llamas-keratin and LCA(leukocyte common antigen). Dilute sample on flow cytometry, with no evidence of non-Hodgkin lymphoma. See also report [id number] from [facility]. 09/11/20 - 1155 CLINICAL DIAGNOSIS Mediastinal mass GROSS DESCRIPTION Received in formalin labeled mediastinal mass are multiple pale white/translucent core fragments, varying from 0.2 to maximally 0.6 cm. Submitted all in one. Also received a specimen in RPMI, submitted to [facility]. for flow cytometry. -SH DISCHARGE MEDICATIONS: Please see below. ALLERGIES: Please see below. PHYSICAL EXAMINATION ON DISCHARGE: VITAL SIGNS: Please see below. GENERAL APPEARANCE: NAD HEENT: no scleral icterus, no JVD, EOMI CARDIOVASCULAR: S1S2 LUNGS: Diminished lung sounds bilaterally ABDOMEN: soft & mildly tender on palpation around right lower quadrant, serous discharge in the drainage bag MUSCULOSKELETAL: no cyanosis, no swelling INTEGUMENT: no generalized pallor NEUROLOGICAL: cranial nerve function from 2-12 intact intact, follows commands, speech not dysarthric LABORATORY DATA: Please see below. IMAGING: Findings: An anal fissure was found on perianal exam. The terminal ileum contained a moderate stenosis that was non-traversed. Biopsies were taken with a cold forceps for histology. The colon (entire examined portion) appeared normal. Impression: - Ulcerated scarred stricture in the terminal ileum. Biopsied. - Localized anal/distal rectal ulceration,scarring and fissure found. - The colon is otherwise normal. (- Exam is consistent with ileal and anal Crohns disease.) PROGNOSIS: Fair ACTIVITY: [As tolerated]. DIET: Cardiac DISCHARGE INSTRUCTIONS: Follow-up with Dr An in one week, follow-up with PCP in 3-5 days, follow-up with oncologist to discuss biopsy result next week Follow rec for drainage DISCHARGE CONDITION: [Stable]. TIME SPENT ON DISCHARGE: 50 minutes. Vital Signs/I&Os Vital Signs Date Time Temp Pulse Resp B/P (MAP) Pulse Ox O2 Delivery O2 Flow Rate FiO2 09/11/20 09:17 76 124/78 09/11/20 06:07 97.5 20 97 Room Air I&O- Last 24 Hours up to 6 AM 09/11/20 06:00 Intake Total 900 ml Output Total 150 ml Balance 750 ml Laboratory Data Labs 24H Laboratory Tests 2 09/11/20 06:14: Nucleated Red Blood Cells % (auto) 0.0, Anion Gap 7L, Glomerular Filtration Rate > 60.0, Calcium Level 8.2L CBC/BMP Laboratory Tests 09/11/20 06:14 Microbiology Microbiology 09/10/20 Blood Culture, Received Pending 09/10/20 Blood Culture, Received Pending 09/07/20 Gram Stain - Final, Complete 09/07/20 Abscess Culture - Final, Complete Streptococcus Group C 09/07/20 Anaerobic Culture - Final, Complete Discharge Medications Scheduled Atenolol (Atenolol) 25 Mg Tablet, 1 TAB PO DAILY Ciprofloxacin HCl (Cipro) 500 Mg Tablet, 500 MG PO BID@ Hydrochlorothiazide (Hydrochlorothiazide) 12.5 Mg Capsule, 12.5 MG PO DAILY, (Reported) Metronidazole (Flagyl) 500 Mg Tablet, 500 MG PO TID Omeprazole (Omeprazole) 20 Mg Capsule.dr, 40 MG PO DAILY Prednisone (Prednisone) 10 Mg Tablet, 10 MG PO TAPER Take 4 tabs daily x 7 days, then 3 tabs daily x 7 days, then 2 tabs daily x 7 days, then 1 tab daily x 7 days and stop Allergies Coded Allergies: piperacillin (Verified Allergy, Severe, hives/angioedema, 09/06/20) tazobactam (Verified Allergy, Severe, hives/angioedema, 09/06/20) WANDA MARTINEZ DO Sep 11, 2020 17:12
[2020-09-11] MEDS ORDERED: CIPROFLOXACIN 500MG TABLET PO SCH (18:00)
[2020-09-11] MEDS ORDERED: metroNIDAZOLE (FLAGYL) 500MG TABLET PO SCH (21:00)
[2020-09-12] MEDS ORDERED: OMEPRAZOLE 20 MG CAP PO SCH (09:00)
[2020-09-14 06:32] LABS: TPMTGEN1 SEE SEPARATE REPORT
== END 2020-09-11 18:20 | disposition home or self-care (01) | DRG 245 ==
LOC: M ED 10:15 → M ED INP 18:49 → ENRESERV 19:42 → M MS5PR 20:51
PROVIDERS: ADMIT Internal Medicine; ATTEND Internal Medicine
PROC: 0WBC3ZX Excision of Mediastinum, Percutaneous Approach, Diagnostic (ICD-10-PCS; 2020-09-09)
PROC: 0DBB8ZX Excision of Ileum, Via Natural or Artificial Opening Endoscopic, Diagnostic (ICD-10-PCS; 2020-09-10)
PROC: 0DB98ZX Excision of Duodenum, Via Natural or Artificial Opening Endoscopic, Diagnostic (ICD-10-PCS; principal; 2020-09-10 14:15)
DX: K50.913 Crohn's disease, unspecified, with fistula (principal); K26.9 Duodenal ulcer, unspecified as acute or chronic, without hemorrhage or perforation; K60.2 Anal fissure, unspecified; I10 Essential (primary) hypertension; R59.0 Localized enlarged lymph nodes; R63.8 Other symptoms and signs concerning food and fluid intake; K80.20 Calculus of gallbladder without cholecystitis without obstruction; K44.9 Diaphragmatic hernia without obstruction or gangrene; D72.829 Elevated white blood cell count, unspecified; Z88.2 Allergy status to sulfonamides; Z88.8 Allergy status to other drugs, medicaments and biological substances; Z90.49 Acquired absence of other specified parts of digestive tract; Z20.822 Contact with and (suspected) exposure to COVID-19; K56.699 Other intestinal obstruction unspecified as to partial versus complete obstruction

== ENCOUNTER → 2020-10-14 | Outpatient (CLI) | payer MEDICAID ==
[~2020-10-14] MED LIST: ATEN25TA PO; ATEN50TA2 PO; CIPR-249 PO; FLAG500T PO; HYDR12.55 PO; HYDR12CA PO; OMEP-218 PO; PRED10TA2 PO
--- NOTE | 2020-10-14 13:42 | PFTRPT ---
Height: 63.00 Inches Weight: 125.00 Lbs BSA: 1.58 Diagnosis: J98.4 DATE: 10/14/2020 ORDERING PHYSICIAN: Bert Waters MD Pre and post bronchodilator studies have excellent technical quality. Some difficulty with the maneuver is noted. Forced vital capacity is reduced. FEV1 is in proportion. Obstructive index is therefore normal. Expiratory limit of the flow-volume loop does raise the question of some nonspecific limitation but performance of the required maneuver hampers data acquisition. No significant bronchodilator response is identified. Total lung capacity is normal. Residual volume is in proportion. Diffusing capacity is borderline. No hemoglobin available for correction. Airway resistance and conductance are normal. IMPRESSION: Cannot rule out a degree of air trapping versus nonspecific flow rate limitation. Clinical correlation with the above will be necessary. MTDD
== END ==
LOC: M CARPUL 13:05
PROVIDERS: ATTEND Thoracic Surgery (Cardiothoracic Vascular Surgery)
DX: J98.4 Other disorders of lung (principal)

== ENCOUNTER 2020-10-21 10:42 | Outpatient (CLI) | payer MEDICAID ==
[~2020-10-21] VITALS: Ht 157.5 cm; Wt 57.2 kg
[2020-10-21] MEDS ORDERED: VEDOLIZUMAB 300 MG in NS 250 ML IV ONE (11:00)
[2020-10-21 11:02] VITALS: BP 138/76
[2020-10-21 12:09] VITALS: BP 123/68
== END 2020-10-21 12:10 | disposition home or self-care (01) ==
LOC: M INFU 10:42
PROVIDERS: ATTEND Internal Medicine Gastroenterology
DX: K50.90 Crohn's disease, unspecified, without complications (principal); Z88.8 Allergy status to other drugs, medicaments and biological substances
CPT/HCPCS: 96365; J3380

== ENCOUNTER → 2020-10-21 | Outpatient (CLI) | payer MEDICAID | LOC: M LAB 11:24 | DX: C34.80 Malignant neoplasm of overlapping sites of unspecified bronchus and lung (principal) ==

== ENCOUNTER → 2020-10-26 | Outpatient (CLI) | payer MEDICAID | LOC: M LAB 09:05 | PROVIDERS: ATTEND Thoracic Surgery (Cardiothoracic Vascular Surgery) | DX: R59.0 Localized enlarged lymph nodes (principal) ==

== ENCOUNTER → 2020-11-02 | Outpatient (CLI) | payer MEDICAID ==
--- NOTE | 2020-11-03 10:17 | REP ---
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 There is also history of Crohn's disease. COMPARISON: Comparison CT study of the chest September 08, 2020.. TECHNIQUE: Sixty-six minutes following the intravenous injection of a 8.13 mCi dose of F-18 FDG, three-dimensional PET scintigraphy is acquired from the skull base to the proximal thighs. Triplanar noncontrast CT scanning is acquired through the same anatomic range for attenuation correction, and image registration with scan parameters optimized to minimize radiation exposure to the patient. PET scintigraphy and CT datasets were fused and displayed on a workstation with multiplanar and projection display capability. FINDINGS: Head and neck soft tissues are unremarkable. In the chest, there is abnormal hypermetabolic uptake in the anterior mediastinal mass. There is a area of anterior mediastinal soft tissue mass density to the right of midline just anterior to the superior vena cava and ascending aorta where maximum standard uptake value is 5.25. The bulk of there remainder of the hypermetabolic uptake is on the left side of the anterior mediastinum. Maximum standard uptake value here is 5.52 to 5.37. No other abnormal mediastinal hypermetabolic uptake is seen. There are new patchy areas of ground-glass opacity in the lower lobes upper lobes bilaterally consistent with inflammatory disease. Low level uptake is seen, non hypermetabolic. SUV values in these new infiltrates range from 1.13-1.47. No other abnormal intrathoracic uptake is seen. In the abdomen and pelvis, there is normal hepatic, splenic, gastrointestinal, and genitourinary FDG distribution. No abnormal uptake is seen. IMPRESSION: Hypermetabolic uptake is seen in the anterior mediastinal mass. No other abnormal hypermetabolic uptake is seen. There are subtle ground-glass opacity infiltrates in the lung tamez bilaterally with low level, non hypermetabolic uptake. These infiltrates are new when compared with the comparison CT study from September 08, 2020. Likely inflammatory/infectious. <Electronically signed by Michel Peirre > 11/03/20 1015
== END ==
LOC: M PLARAD 11:00
PROVIDERS: ATTEND Thoracic Surgery (Cardiothoracic Vascular Surgery)
DX: C34.80 Malignant neoplasm of overlapping sites of unspecified bronchus and lung (principal)
CPT/HCPCS: 78815; A9552

== ENCOUNTER 2020-11-18 10:11 | Outpatient (CLI) | payer MEDICAID ==
[~2020-11-18] VITALS: Ht 160 cm; Wt 57.2 kg
[~2020-11-18 10:11] MED LIST changes: +ENTY1INJ IV; +OMEP1CAP73 PO; +POTA10808 PO; +VITMTA PO
[2020-11-18 10:15] VITALS: BP 178/80
[2020-11-18] MEDS ORDERED: VEDOLIZUMAB 300 MG in NS 250 ML IV ONE ×4 (10:30)
[2020-11-18 11:29] VITALS: BP 153/70
[2020-11-18] MEDS ORDERED: PROC10TA4 PO (13:35)
[2020-11-18] MEDS ORDERED: ONDA8TAB10 PO (13:35)
[2020-11-18] MEDS ORDERED: OLAN10TA2 PO (13:35)
== END 2020-11-18 11:30 | disposition home or self-care (01) ==
LOC: M INFU 10:11
PROVIDERS: ATTEND Internal Medicine Gastroenterology
DX: K50.90 Crohn's disease, unspecified, without complications (principal)
CPT/HCPCS: 96365; J3380

== ENCOUNTER → 2020-11-23 | Outpatient (CLI) | payer MEDICAID ==
[~2020-11-23] MED LIST changes: +LIDOCAINE 1% MDV 20ML VIAL As Ordered ONE; +MIDAZOLAM INJ 2MG/2ML VIAL (J2250 PER 1MG) As Ordered ONE; +NS 1,000 ML IV SCH; +OLAN10TA2 PO; +ONDA8TAB10 PO; +PROC10TA4 PO; +VANCOMYCIN 1000MG/20ML VIAL As Ordered ONE; +VANCOMYCIN HCL 1,000 MG, VIAL MATE ADAPTER 1 EACH in NS 250 ML IV ONE; +diphenhydrAMINE 50MG/ML VIAL (J1200) As Ordered ONE; +fentaNYL 100 MCG/2 ML INJECTION (J3010) As Ordered ONE
--- NOTE | 2020-11-23 12:06 | IRHP ---
[facility] IR Pre-Procedure H & P General Date of Service: Nov 23, 2020 Procedure: Same Day Surgery Interval History and Physical I have seen the patient and reviewed last H & P performed within 30 days. There is no significant interval change. History of Present Illness Chief Complaint The patient is a 60-year-old female admitted with a reason for visit of [place] Stage 30. PRE-PROCEDURE DIAGNOSIS: Thymoma HEART: Normal rate. LUNGS: Normal breathing at rest. ASA Classification ASA Classification: III-Severe systemic dis. Mallampati Score: II NPO: Yes Problems with prior sedation: No Obstructive Sleep Apnea: No Plan moderate sedation Allergies Coded Allergies: piperacillin (Verified Allergy, Severe, hives/angioedema, 09/06/20) tazobactam (Verified Allergy, Severe, hives/angioedema, 09/06/20) Home Medications Scheduled Atenolol (Atenolol), 50 MG PO DAILY, (Reported) Multivitamins (Thera M Plus Tablet), 1 TAB PO QAM, (Reported) Omeprazole (Omeprazole), 1 CAP PO DAILY, (Reported) Potassium Citrate (Potassium Citrate 10MEQ (Urocit-K)), 1 TAB PO DAILY, (Reported) Vedolizumab (Entyvio), 300 MG IV ASDIRECTED, (Reported) Scheduled PRN Ondansetron HCl (Ondansetron HCl), 8 MG PO Q8H PRN for NAUSEA OR VOMITING Prochlorperazine Maleate (Prochlorperazine Maleate), 10 MG PO Q8H PRN for NAUSEA OR VOMITING Discontinued Medications Atenolol (Atenolol), 1 TAB PO DAILY Discontinued Reason: Prescription changed Ciprofloxacin HCl (Cipro), 500 MG PO BID@ Discontinued Reason: Pt states not taking Hydrochlorothiazide (Hydrochlorothiazide), 12.5 MG PO DAILY, (Reported) Discontinued Reason: Pt states not taking Metronidazole (Flagyl), 500 MG PO TID Discontinued Reason: Pt states not taking Olanzapine (Olanzapine), 10 MG PO DAILY Discontinued Reason: Pt states not taking Prednisone (Prednisone), 10 MG PO TAPER Discontinued Reason: Pt states not taking VS, I&O, 24H, Fishbone Vital Signs/I&O Vital Signs Date Time Temp Pulse Resp B/P (MAP) Pulse Ox O2 Delivery O2 Flow Rate FiO2 11/23/20 11:31 98.8 66 16 100 Room Air ROBERTO PAUL MD Nov 23, 2020 12:06
[2020-11-23 15:00] VITALS: BP 129/76
--- NOTE | 2020-11-26 11:16 | IRPON ---
IR Postoperative Note Date Of Procedure: Nov 23, 2020 Time Of Procedure: 16:00 IR Postoperative Note IR Ultrasound and fluoroscopy guided port placement. IR Ultrasound of the neck. IR Moderate sedation. Clinical indication: Thymoma. Physician: Dr. Vela. Procedure: The patient was advised of the benefits, risks, and alternatives of the procedure and informed consent was obtained. A time-out was performed with verification of the patient's name, MRN, site of procedure and type of procedure to be performed. The patient was positioned in the supine position on the angiographic table. The site was prepped and draped in the usual sterile fashion. Moderate sedation was performed by the physician including the presence of an independent trained RN who assisted and monitored the patient's level of consciousness and physiologic status. Following the administration of fentanyl and Versed , the physician spent 45 minutes of continuous face to face time with the patient. Ultrasound of the neck reveals a patent and compressible right internal jugular vein. A radiology nurse radiograph reveals convex bulging of the supracardiac left mediastinal contour, which correlates with mass on CT. The neck and anterior chest wall were anesthetized with lidocaine. The right internal jugular vein was accessed using a microintroducer needle under ultrasound guidance, via a lateral approach. An 018 wire was advanced into the superior vena cava, the needle was removed and a microsheath was placed. An Amplatz wire was then passed into the inferior vena cava. An incision at the internal jugular vein access site and anterior chest wall were made using a scalpel. An incision was made at the anterior chest wall. A small pocket was created using a combination of blunt and sharp dissection. A tunneling device was then used to pass the catheter from the pocket to the neck puncture site. An 8- [employer] Angio UNI5 Smart power port was then positioned in the pocket. The catheter was then measured and cut. The introducer sheath was exchanged for a peel-away sheath. The catheter was passed through the peel-away sheath into the internal jugular vein and the peel-away sheath was removed. The port tip was positioned at the cavoatrial junction. The port was then accessed with a Hart needle. The port flushes and aspirates well. The puncture site in the neck was closed. The chest wall incision was then closed with 2-0 Vicryl and 4-0 Monocryl. Glue and Steri- Strips were applied. A sterile dressing was then applied. The patient tolerated the procedure well and was returned to the PRU in stable condition. Estimated blood loss: <5 ml. Complications: None. Conclusion: 1. Successful placement of an 8-[place] Angio dynamics Smart power port via the right internal jugular vein. The port is ready for immediate use. 2. Patient to follow up in IR clinic in 2 weeks. Thank you for this referral. ROBERTO VELA MD Nov 26, 2020 11:16
== END ==
LOC: M IRPRO 11:20
PROVIDERS: ATTEND Radiology Diagnostic Radiology
DX: C37 Malignant neoplasm of thymus (principal); Z88.1 Allergy status to other antibiotic agents; Z88.8 Allergy status to other drugs, medicaments and biological substances; Z79.899 Other long term (current) drug therapy
CPT/HCPCS: 36561; 99152; 99153; C1769; C1788; C1894; J1200; J1642; J1644; J2250; J3010; J3370

== ENCOUNTER → 2020-11-27 | Outpatient (CLI) | payer MEDICAID ==
[~2020-11-27] MED LIST changes: -LIDOCAINE 1% MDV 20ML VIAL As Ordered ONE; -MIDAZOLAM INJ 2MG/2ML VIAL (J2250 PER 1MG) As Ordered ONE; -NS 1,000 ML IV SCH; -VANCOMYCIN 1000MG/20ML VIAL As Ordered ONE; -VANCOMYCIN HCL 1,000 MG, VIAL MATE ADAPTER 1 EACH in NS 250 ML IV ONE; -diphenhydrAMINE 50MG/ML VIAL (J1200) As Ordered ONE; -fentaNYL 100 MCG/2 ML INJECTION (J3010) As Ordered ONE
--- NOTE | 2020-11-29 11:55 | ECHO ---
ECHOCARDIOGRAM DATE OF PROCEDURE: 11/27/2020 Age: 60 Gender: Female Height: Weight: REFERRING PHYSICIAN: Dr. Jeevan Hayden PATIENT LOCATION: Outpatient. REASON FOR ECHOCARDIOGRAM: Chemotherapy monitoring. 2D MEASUREMENTS: IVS 0.99 cm LV 4.1 cm LVPW 1.0 cm LA 3.1 cm Aorta 2.9 cm IVC 1.8 cm DOPPLER MEASUREMENT: Peak velocity across the aortic valve 1.8 m/s Peak velocity across the LVOT 1.1 m/s Peak gradient across the aortic valve 12.5 mmHg Mean gradient across the aortic valve 6 mmHg Mitral E 0.85 Mitral A 0.76 with a ratio of 1.1 Maximum tricuspid valve velocity 3.4 m/s 2D COMMENTS: 1. Normal left ventricular size, wall thickness and normal global left ventricular systolic function. The estimated left ventricular systolic ejection fraction is 60% to 65%. 2. Normal left atrium. The right atrium appeared to be mildly enlarged. Normal right ventricle in limited use. 3. The atrial septum appeared to be normal without evidence of defect or shunt. 4. Normal aortic root. 5. No pericardial effusion seen. 6. Mildly calcified aortic valve with normal leaflet excursion. Mildly calcified mitral annulus with normal anterior mitral valve leaflet motion. Normal tricuspid valve and pulmonic valve. The proximal pulmonary artery branches were not well visualized. 7. The inferior vena cava was normal in size. IMPRESSION: 1. Normal global left ventricular systolic and diastolic function. 2. Aortic valve sclerosis with trace aortic regurgitation and trivial aortic stenosis. 3. Mitral annular calcification with mild mitral regurgitation. 4. Moderate tricuspid regurgitation with moderate pulmonary hypertension. 5. Global longitudinal strain /GLS of the left ventricle was calculated at -19.5%.
== END ==
LOC: M CARPUL 12:10
PROVIDERS: ATTEND Specialist
DX: C37 Malignant neoplasm of thymus (principal); I27.20 Pulmonary hypertension, unspecified; I08.3 Combined rheumatic disorders of mitral, aortic and tricuspid valves

== ENCOUNTER → 2020-12-08 | Outpatient (POV) | payer MEDICAID ==
[~2020-12-08] VITALS: Ht 161.3 cm; Wt 56.8 kg
[2020-12-08 09:30] VITALS: BP 142/72
--- NOTE | 2020-12-09 13:25 | IRPN ---
[facility] IR Progress Note IR Progress Note DATE: Dec 08, 2020 FOLLOW-UP: Patient is status post port placement. Patient states she is doing well. No pain at site. No fevers or chills. ON EXAMINATION: Right chest port appears to be healing well. Glue and Steri- Strips are still in place. IMPRESSION: Doing well status post port placement. No further follow-up scheduled unless initiated by patient and/or referring provider. Thank you for this referral Allergies Coded Allergies: piperacillin (Verified Allergy, Severe, hives/angioedema, 09/06/20) tazobactam (Verified Allergy, Severe, hives/angioedema, 09/06/20) VS,Fishbone, I+O VS, Fishbone, I+O Vital Signs Date Time Temp Pulse Resp B/P (MAP) Pulse Ox O2 Delivery O2 Flow Rate FiO2 12/08/20 09:30 98.2 66 20 142/72 (95) 99 Room Air ROBERTO PAUL MD Dec 09, 2020 13:25
== END ==
LOC: M IRPOV 09:19
PROVIDERS: ATTEND Radiology Diagnostic Radiology
DX: Z45.2 Encounter for adjustment and management of vascular access device (principal); Z88.0 Allergy status to penicillin; Z88.1 Allergy status to other antibiotic agents

== ENCOUNTER 2021-01-11 09:45 | Outpatient (CLI) | payer MEDICAID, OTHER ==
[~2021-01-11] VITALS: Ht 160 cm; Wt 57.2 kg
[~2021-01-11 09:45] MED LIST changes: -OLAN10TA2 PO; +OLAN1TAB20 PO; +OMEP-173 PO; -OMEP-218 PO; +ONDA-84 PO; -ONDA8TAB10 PO; -PROC10TA4 PO; +PROC10TA5 PO
[2021-01-11 09:50] VITALS: BP 120/72
[2021-01-11 10:14] VITALS: BP 120/72
[2021-01-11] MEDS ORDERED: SODIUM CHLORIDE 0.9% INJ 10 ML SYR IV PRN (10:30)
[2021-01-11] MEDS ORDERED: VEDOLIZUMAB 300 MG in NS 250 ML IV ONE (11:00)
[2021-01-11 11:14] VITALS: BP 129/68
[2021-01-12] MEDS ORDERED: SODIUM CHLORIDE 0.9% INJ 10 ML SYR IV SCH (09:00)
[2021-01-13] MEDS ORDERED: ATEN25TA PO (08:55)
[2021-01-13] MEDS ORDERED: POTA20EL OR (09:51)
[2021-03-24] MEDS ORDERED: ASPI-164 (08:55)
[2021-03-24] MEDS ORDERED: ACET1TAB55 (08:55)
[2021-03-24] MEDS ORDERED: ENOX80IN3 (08:55)
[2021-06-21] MEDS ORDERED: ATEN50TA2 (10:11)
== END 2021-01-11 11:15 | disposition home or self-care (01) ==
LOC: M INFU 09:45
PROVIDERS: ATTEND Internal Medicine Gastroenterology
DX: K50.90 Crohn's disease, unspecified, without complications (principal); Z88.8 Allergy status to other drugs, medicaments and biological substances
CPT/HCPCS: 96365; J1642; J3380

== ENCOUNTER 2021-01-26 15:38 | Emergency (ER) | payer OTHER ==
[~2021-01-26] VITALS: Ht 165.1 cm; Wt 54.1 kg
[~2021-01-26 15:38] MED LIST changes: -OMEP-173 PO; +OMEP-218 PO; -ONDA-84 PO; +ONDA8TAB10 PO; +POTA20EL OR; +PROC10TA4 PO; -PROC10TA5 PO
[2021-01-26 15:39] VITALS: BP 121/71
[2021-01-26] MEDS ORDERED: ONDANSETRON 4MG/2ML VIAL IV ONE (16:55)
[2021-01-26] MEDS ORDERED: NS 1,000 ML IV ONE (16:55)
[2021-01-26 17:32] LABS: HEMATOCRIT 24.5 % (36.0-47.0); HEMOGLOBIN 8.5 g/dl (12.0-15.5); MEAN CORPUSCULAR HEMOGLOBIN 29.2 pg (27.0-33.0); MEAN CORPUSCULAR HGB CONC 34.7 g/dl (32.0-36.5); MEAN CORPUSCULAR VOLUME 84.2 fl (80.0-96.0); PLATELET COUNT, AUTOMATED 111 10^3/uL (150-450); RED BLOOD COUNT 2.91 10^6/uL (4.00-5.40); WHITE BLOOD COUNT 4.8 10^3/uL (4.0-10.0)
[2021-01-26 18:02] LABS: ALBUMIN 3.3 GM/DL (3.2-5.2); ALT/SGPT 15 U/L (12-78); BILIRUBIN,DIRECT 0.2 MG/DL (0.0-0.2); BILIRUBIN,TOTAL 0.3 MG/DL (0.2-1.0); BLOOD UREA NITROGEN 10 MG/DL (7-18); CALCIUM LEVEL 8.4 MG/DL (8.8-10.2); CARBON DIOXIDE LEVEL 32 MEQ/L (21-32); CHLORIDE LEVEL 95 MEQ/L (98-107); CREATININE FOR GFR 0.58 MG/DL (0.55-1.30); GLOMERULAR FILTRATION RATE > 60.0 (>45); GLUCOSE, FASTING 107 MG/DL (70-100); POTASSIUM SERUM 2.9 MEQ/L (3.5-5.1); SODIUM LEVEL 134 MEQ/L (136-145); TOTAL PROTEIN 6.6 GM/DL (6.4-8.2)
[2021-01-26 18:15] LABS: ATYPICAL LYMPH 2 % (0-5); LYMPHOCYTES 47 % (16-44); MONOCYTES 3 % (0-5); NEUTROPHILS 48 % (28-66)
[2021-01-26 18:17] LABS: ANISOCYTOSIS 1+; PLATELET ESTIMATE DECREASED (NORMAL)
[2021-01-26] MEDS ORDERED: POTASSIUM CHLORIDE 10 MEQ SR TABLET PO ONE (18:20)
[2021-01-26] MEDS ORDERED: KCL 10MEQ/100ML SWI (KRUN) 10 MEQ in IV 1 EA IV ONE (18:20)
== END 2021-01-26 18:53 | disposition home or self-care (01) ==
LOC: M ED 15:38
DX: E87.6 Hypokalemia (principal); R11.2 Nausea with vomiting, unspecified; C37 Malignant neoplasm of thymus; I10 Essential (primary) hypertension; K21.9 Gastro-esophageal reflux disease without esophagitis; K50.90 Crohn's disease, unspecified, without complications; M54.5 Low back pain; Z88.1 Allergy status to other antibiotic agents; Z88.8 Allergy status to other drugs, medicaments and biological substances; Z79.899 Other long term (current) drug therapy
CPT/HCPCS: 80048; 80076; 85025; 96361; 96374; 99283; J2405

== ENCOUNTER 2021-02-12 12:24 | Outpatient (CLI) | payer OTHER, MEDICAID ==
[2021-02-12] VITALS (9 sets, daily range): BP systolic 101–133; BP diastolic 53–80
[~2021-02-12] VITALS: Ht 160 cm; Wt 57.2 kg
[2021-02-12] MEDS ORDERED: MAG SULF 1GM/100ML (MAG RUN) SINGLE DOSE IV ONE ×2 (13:00)
[2021-02-12] MEDS ORDERED: ACETAMINOPHEN TAB 650MG DOSE (2X325MG) PO ONE (13:10)
[2021-02-12] MEDS ORDERED: SODIUM CHLORIDE 0.9% INJ 10 ML SYR IV PRN (13:10)
[2021-02-12] MEDS ORDERED: diphenhydrAMINE 25MG CAP PO ONE (13:15)
[2021-02-12] MEDS ORDERED: KCL 20MEQ IN D5W 1000ML 1,000 ML IV SCH (14:00)
[2021-02-13] MEDS ORDERED: SODIUM CHLORIDE 0.9% INJ 10 ML SYR IV SCH (09:00)
== END 2021-02-12 20:25 | disposition home or self-care (01) ==
LOC: M INFU 12:24 → M MS5PR 17:54 → M INFU 20:25
PROVIDERS: ATTEND Specialist
DX: D50.9 Iron deficiency anemia, unspecified (principal); Z88.8 Allergy status to other drugs, medicaments and biological substances
CPT/HCPCS: 36430; 96365; 96366; 96367; J1642; J3475; P9016

== ENCOUNTER 2021-03-24 09:40 | Outpatient (CLI) | payer MEDICAID, OTHER ==
[~2021-03-24] VITALS: Ht 160 cm; Wt 57.2 kg
[~2021-03-24 09:40] MED LIST changes: +ACET1TAB55; +ASPI-164; +ENOX80IN3
[2021-03-24] MEDS ORDERED: VEDOLIZUMAB 300 MG in NS 250 ML IV ONE (10:30)
[2021-03-24 11:20] VITALS: BP 132/75
[2021-03-24] MEDS ORDERED: SODIUM CHLORIDE 0.9% INJ 10 ML SYR IV ONE (11:40)
[2021-03-24 11:52] VITALS: BP 118/58
== END 2021-03-24 11:55 | disposition home or self-care (01) ==
LOC: M INFU 09:40
PROVIDERS: ATTEND Internal Medicine Gastroenterology
DX: K50.90 Crohn's disease, unspecified, without complications (principal); Z88.0 Allergy status to penicillin
CPT/HCPCS: 96365; J1642; J3380

== ENCOUNTER → 2021-04-15 | Outpatient (CLI) | payer OTHER ==
[~2021-04-15] MED LIST changes: +ISOVUE-370 76% 100ML VIAL As Ordered ONE
--- NOTE | 2021-04-15 09:19 | REP ---
INDICATION: THYMOMA. COMPARISON: CT 09/08/2020, PET-CT 11/02/2020 TECHNIQUE: Bolus 75 mL Isovue 370 scanning through the chest with coronal and sagittal reconstructions. FINDINGS: There has been an interval sternotomy. In the anterior aspect superior mediastinum the region where a lobulated solid mass with seen on previous CT there is soft tissue density were curvilinear non lobulated margins. It is greatest measurements are 5.2 x 4.5 x 3.8 cm. It abuts the ureter arch, anterior chest wall in the main pulmonary artery segment. There are surgical clips at the superior most aspect of the anterior mediastinum subjacent to the medial head of the clavicles. To the right of midline where the 2nd anterior mediastinal mass was seen is also some soft tissue density 1.9 x 1 by 1.4 cm. Left lung pleura has a smooth concave contour with this lesion. There is 1 small air pocket within it and much of this may be postoperative change. I do not see compelling evidence for pneumothorax there is no pleural effusion. There is some curvilinear atelectatic change in the left upper lobe abutting the mediastinal pleura in the suprahilar region and extending towards the apex. I do not see parenchymal lung mass or nodules, pleural plaques, pleural based mass or other acute finding. Heart is not grossly enlarged. There is no pericardial thickening or effusion the aorta is without aneurysm or dissection. The main, right and left pulmonary arteries in the mediastinum are without filling defects. The proximal lobar arteries were also grossly intact sub cm right paratracheal, precarinal and AP window nodes are seen no pathologic sized hilar nodes are noted, the largest 7.5 mm in the right and 5.4 mm on the left. There is an indwelling right jugular port catheter now evident. Tip is in the SVC. The bone windows show sternotomy not yet healed. Clavicles, scapulae, visualized portions of humeral heads, ribs and spine show some degenerative changes but no destructive lesion or fracture. A portion of upper abdomen included show few small hypodensities scattered in the liver and unchanged. The consistent with the a benign stable finding. Adrenal glands symmetric and unchanged. That portion of body and tail the pancreas included was unremarkable. Spleen not grossly enlarged up to 11.9 cm greatest diameter. No ascites in the upper abdomen. No pathologic sized adenopathy visible. Upper poles kidneys intact. IMPRESSION: 1. There are postoperative changes in the the mediastinum and anterior chest with the previously noted lobulated solid masses in the anterior superior mediastinum left side larger than right, now with the curvilinear smooth margins in the surgical bed. This could be some residual tumor with postoperative change or all postoperative change. There are no new masses. There is some curvilinear atelectatic change medially in the left upper lobe subpleural region adjacent to the mediastinum. No masses, pulmonary nodules, adenopathy or focal bone lesions identified in the chest. 2. Sternotomy wires and the sternum not yet healed. Right jugular port catheter now in place. 3. No gross hepatosplenomegaly. There are few tiny low-density hepatic lesions consistent with benign finding stable in size and number. <Electronically signed by Seth Bush > 04/15/21 [id number]
== END ==
LOC: M RAD 07:53
DX: C37 Malignant neoplasm of thymus (principal); Z95.828 Presence of other vascular implants and grafts; K76.89 Other specified diseases of liver
CPT/HCPCS: 71260; Q9967

== ENCOUNTER 2021-05-24 06:58 | Outpatient (CLI) | payer OTHER ==
[~2021-05-24] VITALS: Ht 160 cm; Wt 52.2 kg
[~2021-05-24 06:58] MED LIST changes: -ISOVUE-370 76% 100ML VIAL As Ordered ONE; +OMEP-173 PO; -OMEP-218 PO; +ONDA-84 PO; -ONDA8TAB10 PO; -PROC10TA4 PO; +PROC10TA5 PO; +VEDOLIZUMAB 300 MG in NS 250 ML IV ONE
[2021-05-24 07:00] VITALS: BP 146/80
[2021-05-24 09:00] VITALS: BP 114/76
[2021-05-24] MEDS ORDERED: SODIUM CHLORIDE 0.9% INJ 10 ML SYR IV SCH (09:00)
[2021-06-21] MEDS ORDERED: ATEN50TA2 (10:11)
== END 2021-05-24 09:00 | disposition home or self-care (01) ==
LOC: M INFU 06:58
PROVIDERS: ATTEND Internal Medicine Gastroenterology
DX: K50.90 Crohn's disease, unspecified, without complications (principal); Z88.0 Allergy status to penicillin
CPT/HCPCS: 96365; J3380

== ENCOUNTER 2021-07-19 10:34 | Outpatient (CLI) | payer OTHER ==
[~2021-07-19] VITALS: Ht 160 cm; Wt 53.1 kg
[~2021-07-19 10:34] MED LIST changes: +ATEN50TA2; +SODIUM CHLORIDE 0.9% INJ 10 ML SYR IV SCH
[2021-07-19 10:40] VITALS: BP 140/84
[2021-07-19 11:50] VITALS: BP 135/84
== END 2021-07-19 11:50 | disposition home or self-care (01) ==
LOC: M INFU 10:34
PROVIDERS: ATTEND Internal Medicine Gastroenterology
DX: K50.90 Crohn's disease, unspecified, without complications (principal); Z88.1 Allergy status to other antibiotic agents; Z88.8 Allergy status to other drugs, medicaments and biological substances
CPT/HCPCS: 96365; J3380

== ENCOUNTER 2021-09-13 09:39 | Outpatient (CLI) | payer OTHER ==
[~2021-09-13] VITALS: Ht 160 cm; Wt 53.1 kg
[~2021-09-13 09:39] MED LIST changes: -VEDOLIZUMAB 300 MG in NS 250 ML IV ONE
[2021-09-13 09:45] VITALS: BP 138/73
[2021-09-13] MEDS ORDERED: VEDOLIZUMAB 300 MG in NS 250 ML IV ONE (10:00)
[2021-09-13 10:50] VITALS: BP 101/60
== END 2021-09-13 10:50 | disposition home or self-care (01) ==
LOC: M INFU 09:39
PROVIDERS: ATTEND Internal Medicine Gastroenterology
DX: K50.90 Crohn's disease, unspecified, without complications (principal); Z88.1 Allergy status to other antibiotic agents
CPT/HCPCS: 96365; J3380

== ENCOUNTER → 2021-09-27 | Outpatient (REF) | payer OTHER ==
[~2021-09-27] MED LIST changes: -SODIUM CHLORIDE 0.9% INJ 10 ML SYR IV SCH
== END ==
LOC: M LAB REF 10:56
PROVIDERS: ATTEND Internal Medicine Gastroenterology
DX: K50.014 Crohn's disease of small intestine with abscess (principal)

== ENCOUNTER 2021-11-09 09:24 | Outpatient (CLI) | payer OTHER ==
[~2021-11-09] VITALS: Ht 160 cm; Wt 53.9 kg
[2021-11-09] MEDS ORDERED: VEDOLIZUMAB 300 MG in NS 250 ML IV ONE (10:00)
[2021-11-09 10:15] VITALS: BP 126/90
[2021-11-09 11:20] VITALS: BP 124/83
[2021-11-09] MEDS ORDERED: SODIUM CHLORIDE 0.9% INJ 10 ML SYR IV PRN (11:25)
[2021-11-10] MEDS ORDERED: SODIUM CHLORIDE 0.9% INJ 10 ML SYR IV SCH (09:00)
== END 2021-11-09 11:20 | disposition home or self-care (01) ==
LOC: M INFU 09:24
PROVIDERS: ATTEND Internal Medicine Gastroenterology
DX: K50.919 Crohn's disease, unspecified, with unspecified complications (principal); Z88.8 Allergy status to other drugs, medicaments and biological substances
CPT/HCPCS: 96365; J1642; J3380

== ENCOUNTER → 2021-12-29 | Outpatient (CLI) | payer OTHER ==
[~2021-12-29] MED LIST changes: +ISOVUE-370 76% 100ML VIAL As Ordered ONE
== END ==
LOC: M RAD 09:15
DX: C37 Malignant neoplasm of thymus (principal)
CPT/HCPCS: 71260; Q9967

== ENCOUNTER 2022-01-04 10:00 | Outpatient (CLI) | payer OTHER ==
[~2022-01-04] VITALS: Ht 160 cm; Wt 60.0 kg
[2022-01-04 10:00] VITALS: BP 141/85
[~2022-01-04 10:00] MED LIST changes: -ISOVUE-370 76% 100ML VIAL As Ordered ONE; +VEDOLIZUMAB 300 MG in NS 250 ML IV ONE
[2022-01-04 11:15] VITALS: BP 152/88
== END 2022-01-04 11:15 | disposition home or self-care (01) ==
LOC: M INFU 10:00
PROVIDERS: ATTEND Internal Medicine Gastroenterology
DX: K50.919 Crohn's disease, unspecified, with unspecified complications (principal); Z79.899 Other long term (current) drug therapy
CPT/HCPCS: 96365; J3380

== ENCOUNTER → 2022-01-27 | Outpatient (CLI) | payer OTHER ==
[~2022-01-27] MED LIST changes: -VEDOLIZUMAB 300 MG in NS 250 ML IV ONE
== END ==
LOC: M RAD 10:37
DX: C37 Malignant neoplasm of thymus (principal)

== ENCOUNTER 2022-03-01 09:25 | Outpatient (CLI) | payer OTHER ==
[~2022-03-01] VITALS: Ht 160 cm; Wt 60.0 kg
[2022-03-01 09:25] VITALS: BP 143/86
[2022-03-01] MEDS ORDERED: VEDOLIZUMAB 300 MG in NS 250 ML IV ONE (10:00)
[2022-03-01 10:36] VITALS: BP 128/81
== END 2022-03-01 10:35 | disposition home or self-care (01) ==
LOC: M INFU 09:25
PROVIDERS: ATTEND Internal Medicine Gastroenterology
DX: K50.90 Crohn's disease, unspecified, without complications (principal); Z88.8 Allergy status to other drugs, medicaments and biological substances
CPT/HCPCS: 96365; J3380

== ENCOUNTER 2022-04-26 10:00 | Outpatient (CLI) | payer OTHER ==
[2022-04-26 10:00] VITALS: BP 137/86
[~2022-04-26 10:00] MED LIST changes: +VEDOLIZUMAB 300 MG in NS 250 ML IV ONE
[2022-04-26 10:40] VITALS: BP 135/86
== END 2022-04-26 10:42 | disposition home or self-care (01) ==
LOC: M INFU 10:00
PROVIDERS: ATTEND Internal Medicine Gastroenterology
DX: K50.90 Crohn's disease, unspecified, without complications (principal); Z88.8 Allergy status to other drugs, medicaments and biological substances
CPT/HCPCS: 96365; J3380

== ENCOUNTER 2022-06-21 09:35 | Outpatient (CLI) | payer OTHER ==
[~2022-06-21] VITALS: Ht 160 cm; Wt 63.2 kg
[2022-06-21 09:35] VITALS: BP 169/80
[~2022-06-21 09:35] MED LIST changes: -VEDOLIZUMAB 300 MG in NS 250 ML IV ONE
[2022-06-21] MEDS ORDERED: VEDOLIZUMAB 300 MG in NS 250 ML IV ONE (10:00)
[2022-06-21 10:31] VITALS: BP 144/89
== END 2022-06-21 10:32 | disposition home or self-care (01) ==
LOC: M INFU 09:35
PROVIDERS: ATTEND Internal Medicine Gastroenterology
DX: K50.90 Crohn's disease, unspecified, without complications (principal); Z88.8 Allergy status to other drugs, medicaments and biological substances
CPT/HCPCS: 96365; J3380

== ENCOUNTER 2022-08-17 12:30 | Outpatient (CLI) | payer OTHER ==
[~2022-08-17] VITALS: Ht 160 cm; Wt 63.9 kg
[2022-08-17 12:30] VITALS: BP 158/70
[2022-08-17] MEDS ORDERED: VEDOLIZUMAB 300 MG in NS 250 ML IV ONE (13:00)
[2022-08-17 13:50] VITALS: BP 133/64
== END 2022-08-17 13:50 | disposition home or self-care (01) ==
LOC: M INFU 12:30
PROVIDERS: ATTEND Internal Medicine Gastroenterology
DX: K50.90 Crohn's disease, unspecified, without complications (principal); Z88.0 Allergy status to penicillin
CPT/HCPCS: 96365; J3380

== ENCOUNTER → 2022-09-15 | Outpatient (CLI) | payer OTHER ==
[~2022-09-15] MED LIST changes: +ISOVUE-370 76% 100ML VIAL As Ordered ONE
== END ==
LOC: M RAD 15:21
PROVIDERS: ATTEND Nurse Practitioner
DX: D50.9 Iron deficiency anemia, unspecified (principal); C37 Malignant neoplasm of thymus; Z95.828 Presence of other vascular implants and grafts
CPT/HCPCS: 71260; Q9967

== ENCOUNTER → 2022-09-29 | Outpatient (REF) | payer OTHER ==
[~2022-09-29] MED LIST changes: -ISOVUE-370 76% 100ML VIAL As Ordered ONE
[2022-09-29 11:09] LABS: BASO % 0.1 % (0.0-1.0); HEMATOCRIT 38.8 % (36.0-47.0); HEMOGLOBIN 12.5 g/dl (12.0-15.5); LYMPH # 1.8 10^3/uL (1.5-5.0); LYMPH % 21.6 % (24.0-44.0); MEAN CORPUSCULAR HEMOGLOBIN 29.8 pg (27.0-33.0); MEAN CORPUSCULAR HGB CONC 32.2 g/dl (32.0-36.5); MEAN CORPUSCULAR VOLUME 92.6 fl (80.0-96.0); MONO # 0.6 10^3/uL (0.0-0.8); MONO % 6.6 % (2.0-8.0); NEUTROPHILS % 71.3 % (36.0-66.0); PLATELET COUNT, AUTOMATED 249 10^3/uL (150-450); RED BLOOD COUNT 4.19 10^6/uL (4.00-5.40); WHITE BLOOD COUNT 8.4 10^3/uL (4.0-10.0)
[2022-09-29 11:38] LABS: ALBUMIN 3.6 G/DL (3.2-5.2); ALKALINE PHOSPHATASE 83 U/L (46-116); ALT/SGPT 15 U/L (7.0-40); AST/SGOT 20 U/L (<34); BILIRUBIN,TOTAL 0.6 MG/DL (0.3-1.2); BLOOD UREA NITROGEN 16 MG/DL (9-23); CALCIUM LEVEL 8.7 MG/DL (8.3-10.6); CARBON DIOXIDE LEVEL 29 MMOL/L (20-31); CHLORIDE LEVEL 103 MMOL/L (98-107); CREATININE FOR GFR 0.73 MG/DL (0.55-1.30); GLOMERULAR FILTRATION RATE > 60.0 (>45); GLUCOSE, FASTING 74 MG/DL (74-106); SODIUM LEVEL 139 MMOL/L (136-145); TOTAL PROTEIN 7.1 G/DL (5.7-8.2)
[2022-09-29 11:57] LABS: VITAMIN B12 LEVEL 551 PG/ML (211-911)
[2022-09-29 12:06] LABS: ERYTHROCYTE SEDIMENTATION RATE 14 mm/hr (0-30)
== END ==
LOC: M LAB REF 10:15
PROVIDERS: ATTEND Internal Medicine Gastroenterology
DX: K50.00 Crohn's disease of small intestine without complications (principal)

== ENCOUNTER 2022-10-11 09:28 | Outpatient (CLI) | payer OTHER ==
[~2022-10-11] VITALS: Ht 161.3 cm; Wt 63.2 kg
[2022-10-11] MEDS ORDERED: VEDOLIZUMAB 300 MG in NS 250 ML IV ONE (10:00)
[2022-10-11 10:21] VITALS: BP 155/87
[2022-10-11 10:50] VITALS: BP 130/74
== END 2022-10-11 10:30 | disposition home or self-care (01) ==
LOC: M INFU 09:28
PROVIDERS: ATTEND Internal Medicine Gastroenterology
DX: K50.90 Crohn's disease, unspecified, without complications (principal); Z88.0 Allergy status to penicillin
CPT/HCPCS: 96365; J3380

== ENCOUNTER → 2022-12-05 | Outpatient (CLI) | payer OTHER ==
[~2022-12-05] MED LIST changes: +LIDOCAINE 1% MDV 20ML VIAL As Ordered ONE; +MIDAZOLAM INJ 2MG/2ML VIAL As Ordered ONE; +NS 1,000 ML IV SCH; +VANCOMYCIN HCL 1,000 MG, VIAL MATE ADAPTER 1 EACH in NS 250 ML IV ONE; +diphenhydrAMINE 50MG/ML VIAL As Ordered ONE; +fentaNYL 100 MCG/2 ML INJECTION As Ordered ONE
[2022-12-05 07:55] VITALS: TEMP 98.7
[2022-12-05 12:30] VITALS: BP 119/70; O2SAT 98
== END ==
LOC: M IRPRO 07:29
PROVIDERS: ATTEND Nurse Practitioner
DX: D50.9 Iron deficiency anemia, unspecified (principal); D15.0 Benign neoplasm of thymus
CPT/HCPCS: 36561; 99152; 99153; J1200; J2250; J3010

== ENCOUNTER 2022-12-06 09:49 | Outpatient (CLI) | payer OTHER ==
[~2022-12-06] VITALS: Ht 160 cm; Wt 63.0 kg
[~2022-12-06 09:49] MED LIST changes: -LIDOCAINE 1% MDV 20ML VIAL As Ordered ONE; -MIDAZOLAM INJ 2MG/2ML VIAL As Ordered ONE; -NS 1,000 ML IV SCH; -VANCOMYCIN HCL 1,000 MG, VIAL MATE ADAPTER 1 EACH in NS 250 ML IV ONE; -diphenhydrAMINE 50MG/ML VIAL As Ordered ONE; -fentaNYL 100 MCG/2 ML INJECTION As Ordered ONE
[2022-12-06] MEDS ORDERED: VEDOLIZUMAB 300 MG in NS 250 ML IV ONE (10:00)
[2022-12-06 11:10] VITALS: BP 110/61; O2SAT 100
== END 2022-12-06 11:10 | disposition home or self-care (01) ==
LOC: M INFU 09:49
PROVIDERS: ATTEND Internal Medicine Gastroenterology
DX: K50.90 Crohn's disease, unspecified, without complications (principal); Z88.0 Allergy status to penicillin
CPT/HCPCS: 96365; J3380

== ENCOUNTER 2023-01-31 09:45 | Outpatient (CLI) | payer OTHER ==
[~2023-01-31] VITALS: Ht 165.1 cm; Wt 70.4 kg
[2023-01-31 09:41] VITALS: BP 143/77; TEMP 97.2; O2SAT 96
[2023-01-31] MEDS ORDERED: VEDOLIZUMAB 300 MG in NS 250 ML IV ONE (10:00)
[2023-01-31 11:00] VITALS: BP 136/82; TEMP 97.3; O2SAT 99
== END 2023-01-31 11:10 ==
LOC: M INFU 09:45
PROVIDERS: ATTEND Internal Medicine Gastroenterology
DX: K50.90 Crohn's disease, unspecified, without complications (principal); Z88.8 Allergy status to other drugs, medicaments and biological substances
CPT/HCPCS: 96365; J3380

== ENCOUNTER 2023-03-28 09:50 | Outpatient (CLI) | payer OTHER ==
[~2023-03-28] VITALS: Ht 160 cm; Wt 70.0 kg
[2023-03-28 10:06] VITALS: BP 139/92; TEMP 97.7; O2SAT 98
[2023-03-28] MEDS ORDERED: VEDOLIZUMAB 300 MG in NS 250 ML IV ONE (10:15)
[2023-03-28 11:22] VITALS: BP 140/89; O2SAT 98
== END 2023-03-28 11:25 | disposition home or self-care (01) ==
LOC: M INFU 09:50
PROVIDERS: ATTEND Internal Medicine Gastroenterology
DX: K50.90 Crohn's disease, unspecified, without complications (principal); Z88.8 Allergy status to other drugs, medicaments and biological substances
CPT/HCPCS: 96365; J3380

== ENCOUNTER 2023-05-23 09:58 | Outpatient (CLI) | payer OTHER ==
[~2023-05-23] VITALS: Ht 165.1 cm; Wt 96.0 kg
[2023-05-23 09:59] VITALS: BP 144/71; O2SAT 96
[2023-05-23] MEDS ORDERED: VEDOLIZUMAB 300 MG in NS 250 ML IV ONE (10:00)
[2023-05-23 11:08] VITALS: BP 134/79; O2SAT 98
[2023-05-25] MEDS ORDERED: ATEN25TA PO (10:21)
[2023-05-25] MEDS ORDERED: ENTY1INJ IV (10:21)
[2023-05-25] MEDS ORDERED: MULT-90 PO (10:21)
== END 2023-05-23 11:10 | disposition home or self-care (01) ==
LOC: M INFU 09:58
PROVIDERS: ATTEND Internal Medicine Gastroenterology
DX: K50.90 Crohn's disease, unspecified, without complications (principal); Z88.0 Allergy status to penicillin; Z88.8 Allergy status to other drugs, medicaments and biological substances
CPT/HCPCS: 96365; J3380

== ENCOUNTER 2023-07-18 09:38 | Outpatient (CLI) | payer OTHER ==
[~2023-07-18] VITALS: Ht 160 cm; Wt 70.0 kg
[~2023-07-18 09:38] MED LIST changes: +MULT-90 PO
[2023-07-18] MEDS: VEDOLIZUMAB 300 MG in NS 250 ML IV ONE (11:19)
[2023-07-18 11:57] VITALS: BP 145/82; TEMP 97.6; O2SAT 99
== END 2023-07-18 12:00 | disposition home or self-care (01) ==
LOC: M INFU 09:38
PROVIDERS: ATTEND Internal Medicine Gastroenterology
DX: K50.90 Crohn's disease, unspecified, without complications (principal); Z88.0 Allergy status to penicillin
CPT/HCPCS: 96365; J3380

== ENCOUNTER 2023-08-08 09:21 | Day surgery (SDC) | payer OTHER ==
[~2023-08-08] VITALS: Ht 160 cm; Wt 68.4 kg
[~2023-08-08 09:21] MED LIST changes: -POTA20EL OR; +POTA20LI16 OR; +VALS40TA9 PO
[2023-08-08] MEDS: NS 1,000 ML IV ONE (09:33)
[2023-08-08] MEDS ORDERED: fentaNYL 100 MCG/2 ML INJECTION As Ordered ONE (11:25)
[2023-08-08] MEDS ORDERED: LIDOCAINE 2% 100MG/5ML SDV (FOR ANES.) As Ordered ONE (11:25)
[2023-08-08] MEDS ORDERED: propofoL 200 MG/20 ML VIAL As Ordered ONE (11:26)
[2023-08-08 11:39] VITALS: TEMP 98.2
[2023-08-08 11:50] VITALS: BP 117/60; O2SAT 96
== END 2023-08-08 12:01 | disposition home or self-care (01) ==
LOC: M OPP 09:21
PROVIDERS: ATTEND Internal Medicine Gastroenterology
DX: R10.13 Epigastric pain (principal); K29.50 Unspecified chronic gastritis without bleeding; K44.9 Diaphragmatic hernia without obstruction or gangrene; K31.89 Other diseases of stomach and duodenum; K50.90 Crohn's disease, unspecified, without complications; Z90.49 Acquired absence of other specified parts of digestive tract; I10 Essential (primary) hypertension; Z79.899 Other long term (current) drug therapy; Z88.0 Allergy status to penicillin; Z88.8 Allergy status to other drugs, medicaments and biological substances; Z92.21 Personal history of antineoplastic chemotherapy; Z92.3 Personal history of irradiation
CPT/HCPCS: 43239; 88305; J3010

== ENCOUNTER 2023-09-12 09:32 | Outpatient (CLI) | payer OTHER ==
[~2023-09-12] VITALS: Ht 160 cm; Wt 68.6 kg
[2023-09-12 10:35] VITALS: BP 114/72; O2SAT 97
[2023-09-12] MEDS: VEDOLIZUMAB 300 MG in NS 250 ML IV ONE (10:50)
[2023-09-12 11:28] VITALS: BP 132/78; O2SAT 99
== END 2023-09-12 11:30 | disposition home or self-care (01) ==
LOC: M INFU 09:32
PROVIDERS: ATTEND Internal Medicine Gastroenterology
DX: K50.919 Crohn's disease, unspecified, with unspecified complications (principal); Z88.8 Allergy status to other drugs, medicaments and biological substances
CPT/HCPCS: 96365; J3380

== ENCOUNTER 2023-11-07 09:59 | Outpatient (CLI) | payer OTHER ==
[~2023-11-07] VITALS: Ht 160 cm; Wt 67.3 kg
[2023-11-07 10:05] VITALS: BP 126/89; O2SAT 100
[2023-11-07] MEDS: VEDOLIZUMAB 300 MG in NS 250 ML IV ONE (10:53)
[2023-11-07 11:30] VITALS: BP 154/79; O2SAT 99
== END 2023-11-07 11:30 | disposition home or self-care (01) ==
LOC: M INFU 09:59
PROVIDERS: ATTEND Internal Medicine Gastroenterology
DX: K50.90 Crohn's disease, unspecified, without complications (principal); Z88.8 Allergy status to other drugs, medicaments and biological substances
CPT/HCPCS: 96365; J3380

== ENCOUNTER 2024-01-02 10:30 | Outpatient (CLI) | payer OTHER ==
[~2024-01-02] VITALS: Ht 160 cm; Wt 64.5 kg
[2024-01-02 10:30] VITALS: BP 112/70; O2SAT 100
[2024-01-02] MEDS: VEDOLIZUMAB 300 MG in NS 250 ML IV ONE (11:10)
[2024-01-02 11:45] VITALS: BP 122/76; O2SAT 98
== END 2024-01-02 11:50 ==
LOC: M INFU 10:30
PROVIDERS: ATTEND Internal Medicine Gastroenterology
DX: K50.90 Crohn's disease, unspecified, without complications (principal); Z88.8 Allergy status to other drugs, medicaments and biological substances
CPT/HCPCS: 96413; J3380

== ENCOUNTER 2024-01-28 12:16 | Emergency (ER) | payer OTHER ==
[~2024-01-28] VITALS: Ht 160 cm; Wt 60.0 kg
[2024-01-28 15:00] LABS: BASO % 0.1 % (0.0-1.0); HEMATOCRIT 41.3 % (36.0-47.0); HEMOGLOBIN 13.4 g/dl (12.0-15.5); LIPASE 23 U/L (12-53); LYMPH # 1.5 10^3/uL (1.5-5.0); LYMPH % 14.1 % (24.0-44.0); MEAN CORPUSCULAR HEMOGLOBIN 28.2 pg (27.0-33.0); MEAN CORPUSCULAR HGB CONC 32.4 g/dl (32.0-36.5); MEAN CORPUSCULAR VOLUME 86.9 fl (80.0-96.0); MONO # 0.8 10^3/uL (0.0-0.8); MONO % 7.4 % (2.0-8.0); NEUTROPHILS # 8.2 10^3/uL (1.5-8.5); NEUTROPHILS % 78.1 % (36.0-66.0); PLATELET COUNT, AUTOMATED 425 10^3/uL (150-450); RED BLOOD COUNT 4.75 10^6/uL (4.00-5.40); WHITE BLOOD COUNT 10.5 10^3/uL (4.0-10.0)
[2024-01-28 15:03] LABS: ALBUMIN 3.6 G/DL (3.2-5.2); ALKALINE PHOSPHATASE 74 U/L (46-116); ALT/SGPT 10 U/L (7.0-40); AST/SGOT 15 U/L (<34); BILIRUBIN,DIRECT 0.3 MG/DL (<0.4); BILIRUBIN,TOTAL 0.8 MG/DL (0.3-1.2); BLOOD UREA NITROGEN 11 MG/DL (9-23); CALCIUM LEVEL 9.4 MG/DL (8.3-10.6); CARBON DIOXIDE LEVEL 31 MMOL/L (20-31); CHLORIDE LEVEL 96 MMOL/L (98-107); CREATININE FOR GFR 0.76 MG/DL (0.55-1.30); GLOMERULAR FILTRATION RATE > 60.0 (>45); GLUCOSE, FASTING 94 MG/DL (74-106); POTASSIUM SERUM 3.9 MMOL/L (3.5-5.1); SODIUM LEVEL 132 MMOL/L (136-145); TOTAL PROTEIN 7.8 G/DL (5.7-8.2)
[2024-01-28] MEDS: NS 1,000 ML IV ONE (15:40)
[2024-01-28] MEDS: GASTROGRAFIN SOLUTION 30ML PO SCH (16:50)
[2024-01-28] MEDS ORDERED: ISOVUE-370 76% 100ML VIAL As Ordered ONE (18:29)
[2024-01-28 18:34] VITALS: TEMP 96.8
[2024-01-28] MEDS ORDERED: ONDA-282 PO (19:40)
[2024-01-28] MEDS ORDERED: PRED20TA PO (19:40)
[2024-01-28] MEDS: methylPREDNISolone 125MG 2ML VIAL IV ONE (19:54)
[2024-01-28] MEDS: ONDANSETRON 4MG 2ML VIAL IV ONE (19:54)
[2024-01-28 20:02] VITALS: BP 116/74; O2SAT 98
== END 2024-01-28 20:06 | disposition home or self-care (01) ==
LOC: M ED 12:16
DX: K50.00 Crohn's disease of small intestine without complications (principal); I10 Essential (primary) hypertension; Z79.899 Other long term (current) drug therapy; Z88.8 Allergy status to other drugs, medicaments and biological substances
CPT/HCPCS: 74177; 80048; 80076; 81001; 83690; 85025; 87086; 96361; 96374; 96375; 99284; J2405; J2919; Q9963; Q9967

== ENCOUNTER → 2024-02-14 | Outpatient (CLI) | payer OTHER ==
[~2024-02-14] MED LIST changes: +ONDA-282 PO; +PRED20TA PO
[2024-02-14 10:33] LABS: BASO % 0.2 % (0.0-1.0); HEMOGLOBIN 12.8 g/dl (12.0-15.5); LYMPH # 1.3 10^3/uL (1.5-5.0); LYMPH % 13.2 % (24.0-44.0); MEAN CORPUSCULAR HEMOGLOBIN 28.3 pg (27.0-33.0); MEAN CORPUSCULAR VOLUME 88.3 fl (80.0-96.0); MONO # 0.9 10^3/uL (0.0-0.8); MONO % 9.6 % (2.0-8.0); NEUTROPHILS # 7.4 10^3/uL (1.5-8.5); NEUTROPHILS % 76.3 % (36.0-66.0); PLATELET COUNT, AUTOMATED 343 10^3/uL (150-450); RED BLOOD COUNT 4.53 10^6/uL (4.00-5.40); WHITE BLOOD COUNT 9.6 10^3/uL (4.0-10.0)
[2024-02-14 11:03] LABS: ALBUMIN 3.1 G/DL (3.2-5.2); ALKALINE PHOSPHATASE 67 U/L (46-116); ALT/SGPT 11 U/L (7.0-40); AST/SGOT 10 U/L (<34); BILIRUBIN,TOTAL 0.8 MG/DL (0.3-1.2); BLOOD UREA NITROGEN 14 MG/DL (9-23); CALCIUM LEVEL 8.8 MG/DL (8.3-10.6); CARBON DIOXIDE LEVEL 30 MMOL/L (20-31); CHLORIDE LEVEL 100 MMOL/L (98-107); CREATININE FOR GFR 0.85 MG/DL (0.55-1.30); GLOMERULAR FILTRATION RATE > 60.0 (>45); GLUCOSE, FASTING 89 MG/DL (74-106); POTASSIUM SERUM 4.2 MMOL/L (3.5-5.1); SODIUM LEVEL 134 MMOL/L (136-145); TOTAL PROTEIN 6.7 G/DL (5.7-8.2)
[2024-02-14 11:06] LABS: VITAMIN B12 LEVEL 697 PG/ML (211-911)
[2024-02-14 11:31] LABS: HEPATITIS B SURFACE ANTIGEN NEGATIVE (NEGATIVE)
[2024-02-16 14:41] LABS: QuantiFERON-TB Gold Plus NEGATIVE (NEGATIVE)
== END ==
LOC: M LAB 09:37
PROVIDERS: ATTEND Internal Medicine Gastroenterology
DX: K50.018 Crohn's disease of small intestine with other complication (principal)

== ENCOUNTER 2024-02-27 10:20 | Outpatient (CLI) | payer OTHER ==
[~2024-02-27] VITALS: Ht 160 cm; Wt 65.0 kg
[2024-02-27 10:36] VITALS: BP_SYST 138; O2SAT 96
[2024-02-27] MEDS: VEDOLIZUMAB 300 MG in NS 250 ML IV ONE (10:56)
[2024-02-27 11:35] VITALS: BP 117/73; O2SAT 97
== END 2024-02-27 11:35 ==
LOC: M INFU 10:20
PROVIDERS: ATTEND Internal Medicine Gastroenterology
DX: K50.90 Crohn's disease, unspecified, without complications (principal); Z88.8 Allergy status to other drugs, medicaments and biological substances
CPT/HCPCS: 96365; J3380

== ENCOUNTER → 2024-03-22 | Outpatient (CLI) | payer OTHER ==
[~2024-03-22] MED LIST changes: +ISOVUE-370 76% 100ML VIAL As Ordered ONE
== END ==
LOC: M RAD 12:50
PROVIDERS: ATTEND Specialist
DX: C37 Malignant neoplasm of thymus (principal)
CPT/HCPCS: 71260; Q9967

== ENCOUNTER 2024-05-02 11:31 | Outpatient (CLI) | payer OTHER ==
[~2024-05-02] VITALS: Ht 160 cm; Wt 63.0 kg
[~2024-05-02 11:31] MED LIST changes: -ISOVUE-370 76% 100ML VIAL As Ordered ONE
[2024-05-02 12:00] VITALS: BP 126/73; O2SAT 96
[2024-05-02] MEDS: RISANKIZUMAB-RZAA 600 MG in D5W 250 ML IV ONE (12:48)
[2024-05-02 14:00] VITALS: BP 120/76; O2SAT 98
== END 2024-05-02 14:15 | disposition home or self-care (01) ==
LOC: M INFU 11:31
PROVIDERS: ATTEND Internal Medicine Gastroenterology
DX: K50.90 Crohn's disease, unspecified, without complications (principal); Z88.8 Allergy status to other drugs, medicaments and biological substances
CPT/HCPCS: 96365; J2327

== ENCOUNTER 2024-05-30 10:15 | Outpatient (CLI) | payer OTHER ==
[~2024-05-30] VITALS: Ht 160 cm; Wt 61.4 kg
[2024-05-30 10:15] VITALS: BP 124/72; O2SAT 97
[~2024-05-30 10:15] MED LIST changes: -POTA10808 PO; +POTA10809 PO
[2024-05-30] MEDS: RISANKIZUMAB-RZAA 600 MG in D5W 250 ML IV ONE (11:27)
== END 2024-05-30 12:41 | disposition home or self-care (01) ==
LOC: M INFU 10:15
PROVIDERS: ATTEND Internal Medicine Gastroenterology
DX: K50.90 Crohn's disease, unspecified, without complications (principal); Z88.8 Allergy status to other drugs, medicaments and biological substances
CPT/HCPCS: 96365; J2327

== ENCOUNTER → 2024-06-27 | Outpatient (CLI) | payer OTHER ==
[~2024-06-27] VITALS: Ht 162.6 cm; Wt 63.6 kg
[2024-06-27 11:11] VITALS: BP 111/68; O2SAT 98
[2024-06-27] MEDS: RISANKIZUMAB-RZAA 600 MG in D5W 250 ML IV ONE (11:59)
[2024-06-27 13:06] VITALS: BP 119/83; O2SAT 92
== END ==
LOC: M INFU 10:35
PROVIDERS: ATTEND Internal Medicine Gastroenterology
DX: K50.90 Crohn's disease, unspecified, without complications (principal); Z88.8 Allergy status to other drugs, medicaments and biological substances
CPT/HCPCS: 96365; J2327

== ENCOUNTER 2024-07-15 09:40 | Emergency (ER) | payer OTHER ==
[~2024-07-15] VITALS: Ht 160 cm; Wt 60.8 kg
[2024-07-15 11:05] LABS: KETONE, URINE AUTO RFX NEGATIVE (NEGATIVE); MUCUS, URINE RFX SMALL (NEGATIVE); NITRITE, URINE AUTO RFX NEGATIVE (NEGATIVE); RBC, URINE AUTO RFX 0 /HPF (0-3); SQUAM EPITHELIAL CELL UR AURFX 0 /HPF (0-6); WBC, URINE AUTO RFX 6 /HPF (0-3)
[2024-07-15 11:13] LABS: LEUKOCYTE ESTERASE UR AUTO RFX 3+ (NEGATIVE)
[2024-07-15] MEDS ORDERED: CIPR250T26 (11:28)
[2024-07-15] MEDS: FOSFOMYCIN TROMETHAMINE 3 GM POWDER PACKET (MONUROL) PO ONE (15:16)
[2024-07-15 15:59] VITALS: BP 127/80; TEMP 98.1; O2SAT 97
== END 2024-07-15 16:04 | disposition home or self-care (01) ==
LOC: M ED 09:40
DX: N30.90 Cystitis, unspecified without hematuria (principal); Z79.899 Other long term (current) drug therapy

== ENCOUNTER → 2024-09-04 | Outpatient (REF) | payer OTHER ==
[~2024-09-04] MED LIST changes: +CIPR250T26
[2024-09-04 17:34] LABS: APPEARANCE, URINE TURBID (CLEAR); BACTERIA, URINE AUTO NEGATIVE (NEGATIVE); BILIRUBIN, URINE AUTO NEGATIVE (NEGATIVE); BLOOD, URINE BLOOD 2+ (NEGATIVE); COLOR, URINE AMBER (YELLOW); GLUCOSE, URINE (UA) AUTO NEGATIVE (NEGATIVE); KETONE, URINE AUTO 1+ mg/dL (NEGATIVE); LEUKOCYTE ESTERASE, URINE AUTO 3+ (NEGATIVE); NITRITE, URINE AUTO NEGATIVE (NEGATIVE); PROTEIN, URINE AUTO 2+ mg/dL (NEGATIVE); RBC, URINE AUTO 86 /HPF (0-3); SPECIFIC GRAVITY URINE AUTO 1.013 (1.002-1.035); SQUAMOUS EPITHELIAL CELL UR AU 3 /HPF (0-6); UROBILINOGEN, URINE AUTO 0.2 mg/dL (0.0-2.0); WBC, URINE AUTO TNTC /HPF (0-3)
== END ==
LOC: M SMT 17:07
PROVIDERS: ATTEND Physician Assistant
DX: R39.9 Unspecified symptoms and signs involving the genitourinary system (principal)

== ENCOUNTER → 2024-09-16 | Outpatient (REF) | payer OTHER ==
[2024-09-16 18:36] LABS: AMORPHOUS SEDIMENT SMALL (NEGATIVE); APPEARANCE, URINE HAZY (CLEAR); BACTERIA, URINE AUTO 2+ (NEGATIVE); BILIRUBIN, URINE AUTO NEGATIVE (NEGATIVE); BLOOD, URINE BLOOD 2+ (NEGATIVE); COLOR, URINE YELLOW (YELLOW); GLUCOSE, URINE (UA) AUTO NEGATIVE (NEGATIVE); KETONE, URINE AUTO NEGATIVE (NEGATIVE); LEUKOCYTE ESTERASE, URINE AUTO 3+ (NEGATIVE); MUCUS, URINE SMALL (NEGATIVE); NITRITE, URINE AUTO NEGATIVE (NEGATIVE); PROTEIN, URINE AUTO 1+ mg/dL (NEGATIVE); RBC, URINE AUTO 4 /HPF (0-3); SPECIFIC GRAVITY URINE AUTO 1.003 (1.002-1.035); SQUAMOUS EPITHELIAL CELL UR AU 0 /HPF (0-6); UROBILINOGEN, URINE AUTO 0.2 mg/dL (0.0-2.0); WBC, URINE AUTO 163 /HPF (0-3)
== END ==
LOC: M SMT 17:08
PROVIDERS: ATTEND Physician Assistant
DX: R30.0 Dysuria (principal)

== ENCOUNTER 2024-09-18 12:01 | Emergency (ER) | payer OTHER ==
[~2024-09-18] VITALS: Ht 160 cm; Wt 58.0 kg
[2024-09-18 12:54] LABS: KETONE, URINE AUTO RFX NEGATIVE (NEGATIVE); MUCUS, URINE RFX SMALL (NEGATIVE); NITRITE, URINE AUTO RFX NEGATIVE (NEGATIVE); RBC, URINE AUTO RFX 9 /HPF (0-3); SQUAM EPITHELIAL CELL UR AURFX 1 /HPF (0-6)
[2024-09-18 12:59] LABS: LEUKOCYTE ESTERASE UR AUTO RFX 3+ (NEGATIVE); WBC, URINE AUTO RFX TNTC /HPF (0-3)
[2024-09-18 13:42] LABS: BASO % 0.3 % (0.0-1.0); HEMATOCRIT 40.2 % (36.0-47.0); HEMOGLOBIN 12.8 g/dl (12.0-15.5); LYMPH # 1.9 10^3/uL (1.5-5.0); LYMPH % 18.4 % (24.0-44.0); MEAN CORPUSCULAR HEMOGLOBIN 27.5 pg (27.0-33.0); MEAN CORPUSCULAR HGB CONC 31.8 g/dl (32.0-36.5); MEAN CORPUSCULAR VOLUME 86.5 fl (80.0-96.0); MONO % 9.8 % (2.0-8.0); NEUTROPHILS # 7.4 10^3/uL (1.5-8.5); NEUTROPHILS % 71.1 % (36.0-66.0); PLATELET COUNT, AUTOMATED 484 10^3/uL (150-450); RED BLOOD COUNT 4.65 10^6/uL (4.00-5.40); WHITE BLOOD COUNT 10.4 10^3/uL (4.0-10.0)
[2024-09-18 13:47] LABS: CALCIUM LEVEL 9.6 MG/DL (8.3-10.6); CREATININE FOR GFR 0.8 MG/DL (0.55-1.30); GLOMERULAR FILTRATION RATE 82.2 (>45); POTASSIUM SERUM 4.1 MMOL/L (3.5-5.1)
[2024-09-18] MEDS ORDERED: ISOVUE-370 76% 100ML VIAL As Ordered ONE (14:03)
[2024-09-18 18:18] VITALS: TEMP 98
[2024-09-18 19:35] VITALS: BP 123/80; O2SAT 97
[2024-09-19] MEDS ORDERED: LIDOCAINE 2% W/EPINEPHRINE 20ML VIAL **PRES FREE As Ordered ONE (09:44)
== END 2024-09-18 20:01 | disposition short-term general hospital (02) ==
LOC: M ED 12:01
DX: N32.1 Vesicointestinal fistula (principal); K50.90 Crohn's disease, unspecified, without complications; K76.89 Other specified diseases of liver; I10 Essential (primary) hypertension; K21.9 Gastro-esophageal reflux disease without esophagitis; Z88.1 Allergy status to other antibiotic agents; Z90.49 Acquired absence of other specified parts of digestive tract; K80.20 Calculus of gallbladder without cholecystitis without obstruction
CPT/HCPCS: 36415; 71260; 74177; 80048; 81001; 83605; 85025; 87086; 87486; 87581; 87633; 87798; 99284; Q9967

== ENCOUNTER → 2025-03-24 | Outpatient (CLI) | payer MEDICARE, OTHER ==
[~2025-03-24] MED LIST changes: +HYDR12.510 PO; -HYDR12CA PO; +ISOVUE-370 76% 100 ML VIAL As Ordered ONE; +OYST500T16 PO; +RISA360W
== END ==
LOC: M RAD 09:25
DX: C90.00 Multiple myeloma not having achieved remission (principal)
CPT/HCPCS: 71260; 74177; Q9967

== ENCOUNTER → 2025-05-13 | Outpatient (CLI) | payer MEDICARE ==
[~2025-05-13] MED LIST changes: +GADOXETATE DISODIUM 2.5 MMOL/10 ML VIAL ONE; -ISOVUE-370 76% 100 ML VIAL As Ordered ONE
== END ==
LOC: M PLAIMG 13:26
PROVIDERS: ATTEND Student in an Organized Health Care Education/Training Program
DX: R93.2 Abnormal findings on diagnostic imaging of liver and biliary tract (principal); K80.20 Calculus of gallbladder without cholecystitis without obstruction
CPT/HCPCS: 74183; A9581